=== PATIENT | male | born 1950 | race Caucasian/White ===

== ENCOUNTER → 2019-02-18 | Outpatient (CLI) | payer MEDICARE ==
[2019-02-18 12:26] LABS: Basophils % (A) 1 %; Eosinophils # (A) 0.1 k/uL (0-0.7); Eosinophils % (A) 3 %; HCT 42.9 % (39.0-53.0); HGB 13.9 gm/dL (13.0-17.5); Lymphocytes # (A) 1.2 k/uL (1.0-4.8); Lymphocytes % (A) 27 %; MCHC 32.4 g/dL (31.0-37.0); MCV 92.4 fL (80.0-100.0); Mean Platelet Volume 6.9; Monocytes # (A) 0.3 k/uL (0-1.0); Monocytes % (A) 6 %; Neutrophils # (A) 2.7 k/uL (1.3-7.7); Neutrophils % (A) 61 %; Platelet Count 234 k/uL (150-450); RBC 4.64 m/uL (4.30-5.90); RDW 13.7 % (11.5-15.5); WBC 4.5 k/uL (3.8-10.6)
[2019-02-18 12:43] LABS: Anion Gap 8 mmol/L; Blood Urea Nitrogen 22 mg/dL (9-20); Carbon Dioxide 25 mmol/L (22-30); Chloride 104 mmol/L (98-107); Potassium 4.9 mmol/L (3.5-5.1); Sodium 137 mmol/L (137-145)
== END | disposition home or self-care (01) ==
LOC: LABPAT 11:10
PROVIDERS: ATTEND Thoracic Surgery (Cardiothoracic Vascular Surgery)
DX: Z01.818 Encounter for other preprocedural examination (principal); Z01.812 Encounter for preprocedural laboratory examination; C34.31 Malignant neoplasm of lower lobe, right bronchus or lung
CPT/HCPCS: 36415; 80051; 82565; 84520; 85025; 93005

== ENCOUNTER 2019-02-19 07:30 | Inpatient (IN) | payer MEDICARE ==
[2019-02-16 10:51] VITALS: BMI 25.8
[~2019-02-19 07:30] MED LIST: DEXAMETHASONE SOD PHOSPHATE 10 MG/ML 1 ML VIAL IV ONE; HYDROmorphone 0.5 MG/0.5 ML SYRINGE IVP PRN; LACTATED RINGERS 1,000 ML IV SCH; LIDOCAINE 1% 20 ML VIAL (10MG/ML) FOR IV START INTRADERMA PRN; MIDAZOLAM 2 MG/2 ML VIAL IV PRN; ONDANSETRON 4 MG/2 ML VIAL IVP ONE; SCOPOLAMINE 1.5MG/72HR PATCH TRANSDERM ONE; ceFAZolin IN SWFI 2 GM/20 ML SYRINGE IVP ONE
[2019-02-19] MEDS ORDERED: MIDAZOLAM (PF) 2 MG/2 ML VIAL IV ONE (10:30)
[2019-02-19] MEDS ORDERED: LIDOCAINE 1% INJ 10MG/ML (20 ML MDV) ONE (11:13)
[2019-02-19] MEDS ORDERED: fentaNYL (PF) 50 MCG/ML 2 ML AMP ONE (11:13)
[2019-02-19] MEDS ORDERED: MORPHINE SULFATE 10 MG/ML SYRINGE ONE (11:13)
[2019-02-19] MEDS ORDERED: GLYCOPYRROLATE 0.2 MG/ML 2 ML VIAL ONE (11:13)
[2019-02-19] MEDS ORDERED: ROCURONIUM BROMIDE 10 MG/ML 10 ML VIAL IV ONE (11:13)
[2019-02-19] MEDS ORDERED: MIDAZOLAM 2 MG/2 ML VIAL ONE (11:13)
[2019-02-19] MEDS ORDERED: SUCCINYLCHOLINE CHLORIDE 100 MG/5 ML SYR IV ONE (11:13)
[2019-02-19] MEDS ORDERED: NEOSTIGMINE 1 MG/ML 10 ML VIAL ONE (11:13)
[2019-02-19] MEDS ORDERED: PROPOFOL 10 MG/ML 20 ML VIAL IV ONE (11:13)
[2019-02-19] MEDS ORDERED: BUPIVACAINE (PF) 0.5% 30 ML VIAL SQ ONE ×2 (11:28)
--- NOTE | 2019-02-19 13:17 | XR ---
EXAMINATION TYPE: XR chest 1V portable DATE OF EXAM: 02/19/2019 COMPARISON: NONE HISTORY: Status post VATS TECHNIQUE: Single frontal view of the chest is obtained. FINDINGS: There is been placement of a right chest tube. There are overlying cardiac leads. There is no pleural effusion or pneumothorax seen. The cardiac silhouette size is within normal limits. Th e osseous structures are intact. Some patchy basilar density is present bilaterally. IMPRESSION: No evident complication status post VATS. Probable basilar atelectasis.
--- NOTE | 2019-02-19 13:33 | P.OP ---
Date of Procedure: 02/19/19 Preoperative Diagnosis: Cavitating mass right lower lobe lung Postoperative Diagnosis: Same Procedure(s) Performed: Right thoracoscopic wedge resection mass right lower lobe lung Anesthesia: CLARITA Surgeon: Paulie Martinez Belt Operator #1: Eros Hawthorne Estimated Blood Loss (ml): 5 IV fluids (ml): 400 Pathology: other (Wedge resection mass right lower lobe lung sent for permanent section and culture) Condition: stable Disposition: PACU Indications for Procedure: 68-year-old male with small PET positive cavitary mass right lower lobe of lung Operative Findings: Small mass right lower lobe of lung resected with grossly negative margins Description of Procedure: The patient was brought to the operating room, placed supine on the operating table, anesthetized and intubated with a double-lumen endotracheal tube. Tube was positioned with fiberoptic bronchoscopy. Patient was turned in the left lateral decubitus position and the right chest sterilely prepped and draped. 3 one-inch incisions were made in the right chest and carried into the pleural space. Single lung ventilation was initiated. The lung was gently massaged and the tumor was identified. It was grasped and wedge resection performed with multiple firings of an Endo ALEX stapler. Specimen was placed in an Endo Catch bag and brought out onto the field. It was cut on the back table where a small tumor was noted. A portion of this was sent for culture and the remainder was sent for pathology. The staple lines were inspected and noted to be intact. The lung was reinflated and the staple lines appeared to be holding. 28-Armenian chest tube was placed posterior apically through separate stab incision. Incisions were closed with layers of Vicryl suture. Rib blocks were performed at the level of the incisions with half percent Marcaine. Skin glue and dry sterile dressings were applied. The chest tube was connected to a Pleur-evac. The patient was extubated and transferred to recovery in stable condition.
[2019-02-19] MEDS ORDERED: traMADol 50 MG TAB PO SCH (15:05)
[2019-02-19] MEDS ORDERED: ONDANSETRON 4 MG/2 ML VIAL IVP PRN (15:05)
[2019-02-19] MEDS ORDERED: DEXTROSE 5%-0.45% NACL 1,000 ML IV SCH (15:05)
[2019-02-19] MEDS ORDERED: ACETAMINOPHEN TAB 500 MG TAB PO PRN (15:42)
[2019-02-19 15:56] VITALS: RESP 18
[2019-02-19] MEDS: KETOROLAC 30 MG/ML 1 ML VIAL IVP SCH ×2 (18:13→23:36)
[2019-02-19] MEDS: HEPARIN SODIUM,PORCINE 5,000 UNIT/ML 1 ML VIAL SQ SCH ×2 (18:16→23:36)
[2019-02-19] MEDS: ceFAZolin IN SWFI 2 GM/20 ML SYRINGE IVP SCH ×2 (18:16→23:36)
--- NOTE | 2019-02-19 19:25 | P.CNPUL ---
History of Present Illness Consult date: 02/19/19 Reason for consult: lung mass History of present illness: a pleasant 68-year-old male patient, a chronic smoker who has [id number] smoking history. 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 . The patient is currently not smoking and he quit smoking approximately 40 years ago. He is completely asymptomatic. He has no respiratory difficulties. No reported cough sputum production chest tightness or wheezing. No exposure to TB. No recurrent pneumonias. No recurrent bronchitis. No recurrent aspiration. No constitutional symptoms. No personal history of malignancy. A screening CAT scan was ordered by his primary care physician and this was compared to the earlier CAT scan that was done in 2016. I reviewed the CAT scan films and I also showed the films to the patient. There is an eccentric lesion with thick escamilla around it in the right lower lobe measuring 1.8 cm minutes largest dimension. This is a new finding it was not seen on a previous CAT scan that was obtained and 2016. The patient has also bilateral emphysematous changes more so in the upper lobes. No mediastinal lymphadenopathy. On his pulmonary function tests, he has mild COPD with an FEV1 of 78% of predicted and a post bronchodilation FEV1 of 82%, diffusion of 61%. Total lung capacity of 117%. No cardiac disease. No blood pressure. No diabetes. No other medical problems and comorbidities. Note that the patient underwent a PET scan that confirmed the findings and there was possible uptake in the mass without evidence of any other activity and this seems to be localized uptake in the right lower lobe. As such, there is a high suspicion for malignancy. The patient is suspected to have stage I carcinoma and squamous cell carcinoma was suspected based on underlying cavitation and the possibility of an underlying chronic lung infection cannot be completely ruled out. He was referred to surgical evaluation he was seen by Dr. Paulie Martinez. The patient underwent a thoracoscopic wedge resection of the right lower lobe cavitating lesion. I saw him postop. The patient has no evidence of any complication post his surgery. There is some atelectatic changes in lung bases. The rest of the chest tube without any significant amount of air leak. No significant output from the chest tube. Pain is under good control. He has no specific complaints. Review of Systems Constitutional Constitutional: no fever, no night sweats, no significant weight gain, no significant weight loss, no exercise intolerance Eyes Eyes: no dry eyes, no vision change, no irritation ENMT Ears: no difficulty hearing, no ear pain Nose: no frequent nosebleeds, no nose problems, no sinus problems Mouth/Throat: no sore throat, no bleeding gums, no snoring, no dry mouth, no mouth ulcers, no oral abnormalities, no teeth problems Cardiovascular Cardiovascular: no chest pain, no arm pain on exertion, no shortness of breath when walking, no shortness of breath when lying down, no palpitations, no known heart murmur Respiratory Respiratory: no cough, no wheezing, no shortness of breath, no coughing up blood, no sleep apnea Gastrointestinal Gastrointestinal: no abdominal pain, no nausea, no vomiting, no constipation, n ormal appetite, no diarrhea, not vomiting blood, no dyspepsia, no GERD Genitourinary Genitourinary: no incontinence, no difficulty urinating, no hematuria, no increased frequency Musculoskeletal Musculoskeletal: no muscle aches, no muscle weakness, no arthralgias/joint pain, no back pain, no swelling in the extremities Integumentary Skin: no abnormal mole, no jaundice, no rashes, no laceration Neurologic Neurologic: no loss of consciousness, no weakness, no numbness, no seizures, no dizziness, no migraines, no headaches, no tremor Psychiatric Psych: no depression, no sleep disturbances, feeling safe in a relationship, no alcohol abuse, no anxiety, no hallucinations, no suicidal thoughts Endocrine Endocrine: no fatigue Hematologic/Lymphatic Hematologic/Lymphatic no swollen glands, no bruising, no excessive bleeding Allergic/Immunologic Allergy/Immunologic: no runny nose, no sinus pressure, no itching, no hives, no frequent sneezing Past Medical History Past Medical History: Hyperlipidemia, Hypertension Additional Past Medical History / Comment(s): Right lower lobe indicating pulmonary lesion, seasonal allergies History of Any Multi-Drug Resistant Organisms: None Reported Additional Past Surgical History / Comment(s): left leg vein stripping Past Anesthesia/Blood Transfusion Reactions: No Reported Reaction Smoking Status: Former smoker - Past Family History Mother Family Medical History: Cancer Additional Family Medical History / Comment(s): pancreas Father Family Medical History: Cancer Additional Family Medical History / Comment(s): lung, prostate, skin Sister(s) Family Medical History: Cancer Additional Family Medical History / Comment(s): uterine Medications and Allergies Home Medications Medication Instructions Recorded Confirmed Type Aspirin [Adult Low Dose Aspirin EC] 81 mg PO DAILY 02/16/19 02/19/19 History Lisinopril [Zestril] 5 mg PO QAM 02/16/19 02/19/19 History Montelukast [Singulair] 10 mg PO DAILY 02/16/19 02/19/19 History Simvastatin [Zocor] 10 mg PO QAM 02/16/19 02/19/19 History Allergies Allergy/AdvReac Type Severity Reaction Status Date / Time No Known Allergies Allergy Verified 02/19/19 15:05 Physical Exam Vitals: Vital Signs Temp Pulse Resp BP Pulse Ox 02/19/19 13:30 66 16 112/90 92 L 02/19/19 13:15 68 16 111/72 92 L 02/19/19 12:57 17 123/75 98 02/19/19 12:49 70 16 119/84 96 02/19/19 10:06 97.1 F L 59 L 16 147/75 98 Intake and Output 02/18/19 02/19/19 02/19/19 22:59 06:59 14:59 Intake Total 500 Output Total 5 Balance 495 Intake: IV 500 Output: Estimated Blood Loss 5 General Appearance no diaphoresis, no respiratory distress, speech not interrupted by breaths, no dyspnea, no pallor, not cachectic, well nourished, appears well HEENT no pursed lip breathing, no jugular venous distention, no mucous membrane cyanosis, no perioral cyanosis, mallampati classification: class 1 Chest no barrel chest, no retractions, no sternocleidomastoid muscle contractions, no supraclavicular retractions, no intercostal retractions, no prolonged expiratory wheezing, no decreased air movement, no rhonchi, no hyperinflation, (normal) adventitious sounds: rales / crackles: bilaterally: midlung chery. The patient has a right-sided chest tube in place. No significant air leak. Surgical wound site over the right lung area dry clean and intact. Heart no right ventricular heave, no distant heart sounds, no s3 gallop, (normal) jugular vein: jugular venous distention: by 0cm, (normal) jugular vein GI bowel sounds: hyperactive (borborygmi), bowel sounds: diminished or absent Extremities no cyanosis, no clubbing, no edema Neurologic no decreased mental status, no somnolence, no confusion Assisstive Devices: ambulates with no assitive devices Gait and Mobility: gait WNL, full weight bearing Examination of the skin revealed no evidence of significant rashes, suspicious appearing nevi or other concerning lesions. Results - Diagnostic Findings Chest x-ray: image reviewed Assessment and Plan Plan: 1 right lower lobe indicating pulmonary nodule measuring 1.8 cm in size showing increased activity on the PET scan, likely a stage I carcinoma. The patient is referred to cardiothoracic surgery and the patient underwent a thoracoscopic wedge resection of the right lower lobe lesion for diagnosis. If positive, righ t lower lobe resection is being planned and a separate setting. Currently is postop day #0. The right-sided chest tube in place. 2 hypertension 3 hyperlipidemia 4 mild COPD with an FEV1 of 70% of predicted at baseline. Plan Patient is doing well. Provide an incentive spirometer. Daily chest x-ray. Keep the chest tube in place and monitor the output. Ultram and tramadol for pain control. Heparin subcu for DVT prophylaxis. IV fluids with D5 half-normal saline today to 4 disease an hour. He is doing well. Awaiting final pathology results. We'll continue to follow.
[2019-02-19] MEDS: traMADol 50 MG TAB PO PRN (19:46)
[2019-02-19] MEDS ORDERED: MELATONIN 3 MG TABLET PO SCH (21:00)
[2019-02-20 06:21] LABS: Basophils % (A) 0 %; Eosinophils % (A) 0 %; HCT 37.4 % (39.0-53.0); HGB 12.4 gm/dL (13.0-17.5); Lymphocytes % (A) 15 %; MCH 29.7 pg (25.0-35.0); MCHC 33.1 g/dL (31.0-37.0); MCV 89.9 fL (80.0-100.0); Mean Platelet Volume 6.6; Monocytes # (A) 0.4 k/uL (0-1.0); Monocytes % (A) 7 %; Neutrophils # (A) 4.7 k/uL (1.3-7.7); Neutrophils % (A) 75 %; Platelet Count 227 k/uL (150-450); RBC 4.16 m/uL (4.30-5.90); RDW 13.6 % (11.5-15.5); WBC 6.3 k/uL (3.8-10.6)
[2019-02-20 06:30] LABS: Anion Gap 6 mmol/L; Blood Urea Nitrogen 24 mg/dL (9-20); Calcium 8.7 mg/dL (8.4-10.2); Carbon Dioxide 26 mmol/L (22-30); Chloride 101 mmol/L (98-107); Glucose 107 mg/dL (74-99); Potassium 4.5 mmol/L (3.5-5.1); Sodium 133 mmol/L (137-145)
[2019-02-20] MEDS: traMADol 50 MG TAB PO PRN (06:30)
[2019-02-20] MEDS: KETOROLAC 30 MG/ML 1 ML VIAL IVP SCH ×2 (06:31→13:23)
[2019-02-20] MEDS ORDERED: PANTOPRAZOLE 40 MG TABLET PO SCH (07:30)
--- NOTE | 2019-02-20 08:41 | XR ---
EXAMINATION TYPE: XR chest 1V DATE OF EXAM: 02/20/2019 COMPARISON: 02/19/2019 HISTORY: Post VATS TECHNIQUE: Single frontal view of the chest is obtained. FINDINGS: There is been placement of a right chest tube. There are overlying cardiac leads. There is no pleural effusion or pneumothorax seen. The cardiac silhouette size is within normal limits. The o sseous structures are intact. Some patchy basilar density is present bilaterally. Hyperinflation sugg ests COPD. Arthropathy of the shoulders. IMPRESSION: 1. Stable chest x-ray with no sizable pneumothorax postoperatively. 2. Bilateral areas of consolidation may represent underlying atelectasis with tiny effusions versus i nfiltrate.
[2019-02-20] MEDS ORDERED: LISINOPRIL 5 MG TAB PO SCH (09:00)
[2019-02-20] MEDS ORDERED: ASPIRIN 81 MG PO SCH (09:00)
[2019-02-20] MEDS ORDERED: ATORVASTATIN 10 MG TAB PO SCH (09:00)
[2019-02-20] MEDS ORDERED: MONTELUKAST 10 MG TAB PO SCH (09:00)
[2019-02-20] MEDS: HEPARIN SODIUM,PORCINE 5,000 UNIT/ML 1 ML VIAL SQ SCH (09:02)
--- NOTE | 2019-02-20 09:20 | P.PN ---
Subjective Progress Note Date: 02/20/19 Principal diagnosis: Cavitating mass right lower lobe of the lung. Previous medical history of COPD with [id number] smoking history, hypertension, hypercholesterolemia, and fami ly history of cancer. POD #1 right thoracoscopic wedge resection of the mass to the right lower lobe lung The patient's currently sitting up in bed in no acute distress. States pain is well controlled on current medication regimen. Denies shortness of breath. Right pleural chest tube remains to waterseal, no air leak present. Objective - Vital Signs Vital signs: Vital Signs Temp 98.1 F 02/20/19 04:00 Pulse 64 02/20/19 04:00 Resp 18 02/20/19 04:00 BP 104/68 02/20/19 04:00 Pulse Ox 93 L 02/20/19 04:00 Intake & Output 02/19/19 02/20/19 02/20/19 18:59 06:59 18:59 Intake Total 780 Output Total 5 247 Balance 775 -247 Weight 79.3 kg Intake: IV 500 Oral 280 Output: Chest Tube Drainage 32 Chest Tube Right 32 Urine 215 Estimated Blood Loss 5 Other: Voiding Method Toilet # Voids 1 - Constitutional General appearance: Present: cooperative, no acute distress - Respiratory Details: Lungs sounds clear but diminished bilaterally. Respirations even, nonlabored. Currently on room air with oxygen saturation 93%. Able to achieve 2250 mL on his incentive spirometry. Right pleural chest tube to waterseal, 32 mL serosanguineous drainage overnight, 100 mL since surgery, no air leak present. - Cardiovascular Details: S1, S2 present. Regular rate and rhythm, sinus rhythm on telemetry. Palpable peripheral pulses bilaterally. No edema present. No calf pain or tenderness noted. SCDs present. - Gastrointestinal Gastrointestinal Comment(s): Abdomen soft, nontender, nondistended. Active bowel sounds 4 quadrants. Tolerating diet. - Genitourinary Genitourinary Comment(s): Continues to void clear, yellow urine. - Integumentary Integumentary Comment(s): Skin is warm and dry with evidence of good perfusion. Right pleural chest tube site covered with dry intact dressing. - Neurologic Neurologic: Present: CNII-XII intact - Musculoskeletal Musculoskeletal: Present: gait normal, strength equal bilaterally - Psychiatric Psychiatric: Present: A&O x's 3, appropriate affect, intact judgment & insight - Allied health notes Allied health notes reviewed: nursing - Labs CBC & Chem 7: 02/20/19 05:48 02/20/19 05:48 Labs: Abnormal Lab Results - Last 24 Hours (Table) 02/20/19 02/20/19 Range/Units 05:48 05:48 RBC 4.16 L (4.30-5.90) m/uL Hgb 12.4 L (13.0-17.5) gm/dL Hct 37.4 L (39.0-53.0) % Sodium 133 L (137-145) mmol/L BUN 24 H (9-20) mg/dL Glucose 107 H (74-99) mg/dL Microbiology - Last 24 Hours (Table) 02/19/19 12:16 Gram Stain - Preliminary Lung - Right Lower Lobe Tissue Culture - Preliminary 02/19/19 12:16 Acid Fast Bacilli Smear - Final Lung - Right Lower Lobe Acid Fast Bacilli Culture - Preliminary 02/19/19 12:16 Anaerobic Culture - Preliminary Lung - Right Lower Lobe 02/19/19 12:16 Fungal Culture - Preliminary Lung - Right Lower Lobe - Imaging and Cardiology Chest x-ray: report reviewed, image reviewed Assessment and Plan Assessment: 1. Cavitating mass right lower lobe of the lung, status post right thoracoscopic wedge resection. 2. COPD with [id number] smoking history 3. Hypertension 4. Hypercholesterolemia 5. Family history of cancer Plan: 1. Will discontinue right pleural chest tube. Repeat CXR in 2 hours. If stable, will discharge to home with follow up appointment made for Dr. Martinez in 1 week. 2. Encourage continued incentive spirometry at home. 3. Pain control with Tylenol alternating with Motrin. 4. Increase activity, ambulate as tolerated. 5. Chest tube dressing to remain in place for 48 hours. If dressing becomes saturated, may reinforce. After 48 hours, patient may remove dressing and shower daily. 6. Follow up appointments made for pulmonology, primary care physicians. Time with Patient: Greater than 30
--- NOTE | 2019-02-20 12:14 | XR ---
EXAMINATION TYPE: XR chest 2V DATE OF EXAM: 02/20/2019 COMPARISON: NONE TECHNIQUE: PA and lateral views submitted. HISTORY: Post chest tube removal FINDINGS: There is removal right-sided chest tube with a tiny less than 5% right apical pneumothorax. Subsegmen jeanmarie changes involving the left lung base. Right perihilar subsegmental changes are noted. There is hy perinflation suggestive of COPD. Hypertrophic and degenerative change of the spine. Arthropathy of th e shoulders. Diffuse osteopenia. IMPRESSION: 1. Tiny less than 5% right apical pneumothorax post chest tube removal. 2. Bilateral areas of consolidation for which atelectasis is favored over pneumonia.
[2019-02-20 12:50] VITALS: BP 105/63; PULSE 63; TEMP 97.9
--- NOTE | 2019-02-20 15:52 | P.PN ---
Subjective Progress Note Date: 02/20/19 Principal diagnosis: Right lower lobe pulmonary nodule with increased uptake on the PET scan, status post a scopic wedge resection of the right lower lobe postoperative day 1 a pleasant 68-year-old male patient, a chronic smoker who has [id number] smoking history. 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 . The patient is currently not smoking and he quit smoking approximately 40 years ago. He is completely asymptomatic. He has no respiratory difficulties. No reported cough sputum production chest tightness or wheezing. No exposure to TB. No recurrent pneumonias. No recurrent bronchitis. No recurrent aspiration. No constitutional symptoms. No personal history of malignancy. A screening CAT scan was ordered by his primary care physician and this was compared to the earlier CAT scan that was done in 2016. I reviewed the CAT scan films and I also showed the films to the patient. There is an eccentric lesion with thick escamilla around it in the right lower lobe measuring 1.8 cm minutes largest dimension. This is a new finding it was not seen on a previous CAT scan that was obtained and 2016. The patient has also bilateral emphysematous changes more so in the upper lobes. No mediastinal lymphadenopathy. On his pulmonary function tests, he has mild COPD with an FEV1 of 78% of predicted and a post bronchodilation FEV1 of 82%, diffusion of 61%. Total lung capacity of 117%. No cardiac disease. No blood pressure. No diabetes. No other medical problems and comorbidities. Note that the patient underwent a PET scan that confirmed the findings and there was possible uptake in the mass without evidence of any other activity and this seems to be localized uptake in the right lower lobe. As such, there is a high suspicion for malignancy. The patient is suspected to have stage I carcinoma and squamous cell carcinoma was suspected based on underlying cavitation and the possibility of an underlying chronic lung infection cannot be completely ruled out. He was referred to surgical evaluation he was seen by Dr. Paulie Martinez. The patient underwent a thoracoscopic wedge resection of the right lower lobe cavitating lesion. I saw him postop. The patient has no evidence of any complication post his surgery. There is some atelectatic changes in lung bases. The rest of the chest tube without any significant amount of air leak. No significant output from the chest tube. Pain is under good control. He has no specific complaints. On 02/20/2019 patient seen in follow-up on selective care unit. He is awake and alert, in no acute distress, he is doing very well, he is feeling better today, more awake, doesn't remember much from yesterday, but no acute distress, he is on room air, he is prone 3000 on his incentive spirometer, today's chest x-ray has been reviewed, showing no sizable pneumothorax, bilateral areas of consoli dation that could represent underlying atelectasis with tiny pleural effusions. Biopsy results are pending, this is postoperative day one, right thoracoscopic wedge resection of the mass to the right lower lobe lung, pain is well controlled on current medications, right pleural chest tube has been discontinued, and there was no air leak present this morning. Follow-up chest x-ray showed tiny less than 5% right apical pneumothorax. he remains stable, and he is anticipated to be discharged home today. Objective - Vital Signs Vital signs: Vital Signs Temp 97.9 F 02/20/19 12:00 Pulse 63 02/20/19 12:00 Resp 18 02/20/19 12:00 BP 105/63 02/20/19 12:00 Pulse Ox 94 L 02/20/19 12:00 Intake & Output 02/19/19 02/20/19 02/20/19 18:59 06:59 18:59 Intake Total 780 450 Output Total 5 247 Balance 775 -247 450 Weight 79.3 kg Intake: IV 500 Oral 280 450 Output: Chest Tube Drainage 32 Chest Tube Right 32 Urine 215 Estimated Blood Loss 5 Other: Voiding Method Toilet # Voids 1 - Exam GENERAL EXAM: Alert, pleasant, 68-year-old white male, comfortable in no apparent distress. HEAD: Normocephalic/atraumatic. EYES: Normal reaction of pupils, equal size. Conjunctiva pink, sclera white. NOSE: Clear with pink turbinates. THROAT: No erythema or exudates. NECK: No masses, no JVD, no thyroid enlargement, no adenopathy. CHEST: No chest wall deformity. Symmetrical expansion. Right-sided chest tube has been discontinued LUNGS: Equal air entry with diminished breath sounds bilaterally. Respirations are even and nonlabored CVS: Regular rate and rhythm, normal S1 and S2, no gallops, no murmurs, no rubs ABDOMEN: Soft, nontender. No hepatosplenomegaly, normal bowel sounds, no guarding or rigidity. EXTREMITIES: No clubbing, no edema, no cyanosis, 2+ pulses and upper and lower extremities. MUSCULOSKELETAL: Muscle strength and tone normal. SPINE: No scoliosis or deformity SKIN: No rashes CENTRAL NERVOUS SYSTEM: Alert and oriented -3. No focal deficits, tone is normal in all 4 extremities. PSYCHIATRIC: Alert and oriented -3. Appropriate affect. Intact judgment and insight. - Labs CBC & Chem 7: 02/20/19 05:48 02/20/19 05:48 Labs: Abnormal Lab Results - Last 24 Hours (Table) 02/20/19 02/20/19 Range/Units 05:48 05:48 RBC 4.16 L (4.30-5.90) m/uL Hgb 12.4 L (13.0-17.5) gm/dL Hct 37.4 L (39.0-53.0) % Sodium 133 L (137-145) mmol/L BUN 24 H (9-20) mg/dL Glucose 107 H (74-99) mg/dL Microbiology - Last 24 Hours (Table) 02/19/19 12:16 Gram Stain - Preliminary Lung - Right Lower Lobe Tissue Culture - Preliminary 02/19/19 12:16 Acid Fast Bacilli Smear - Final Lung - Right Lower Lobe Acid Fast Bacilli Culture - Preliminary 02/19/19 12:16 Anaerobic Culture - Preliminary Lung - Right Lower Lobe 02/19/19 12:16 Fungal Culture - Preliminary Lung - Right Lower Lobe Assessment and Plan Plan: 1 right lower lobe indicating pulmonary nodule measuring 1.8 cm in size showing increased activity on the PET scan, likely a stage I carcinoma. The patient is referred to cardiothoracic surgery and the patient underwent a thoracoscopic wedge resection of the right lower lobe lesion for diagnosis. If positive, right lower lobe resection is being planned and a separate setting. Currently is postop day #1. The right-sided chest tube in place. 2 hypertension 3 hyperlipidemia 4 mild COPD with an FEV1 of 70% of predicted at baseline. Plan: Patient is doing well, right-sided chest tube has been removed, follow-up chest x-ray showed a tiny 5% apical pneumothorax on the right, clinical patient remains stable, dissipate discharge home today, by his results are still pending. We'll follow up in the office with results of the biopsy. I performed a history & physical examination of the patient and discussed their management with my nurse practitioner, Lindsay Camacho. I reviewed the nurse practitioner's note and agree with the documented findings and plan of care. Lung sounds are positive for diffuse wheezes throughout the lung chery. The findings and the impression was discussed with the patient. I attest to the documentation by the nurse practitioner. Time with Patient: Less than 30
--- NOTE | 2019-02-22 11:13 | P.DS ---
Providers Date of admission: 02/19/19 08:34 Expected date of discharge: 02/20/19 Attending physician: Paulie Martinez Consults: 02/19/19 15:05 Consult Physician Routine Consulting Provider: Mar Lee Consult Reason/Comments: post vats Do you want consulting provider notified?: Yes Primary care physician: [facility] Course: FINAL DIAGNOSIS: 1. Cavitating mass right lower lobe of the lung 2. History of COPD with [id number] smoking history 3. Hypertension 4. Hypercholesterolemia 5. Family history of cancer PRINCIPAL PROCEDURE: 1. Right thoracoscopic wedge resection of the mass to the right lower lobe of the lung HISTORY OF PRESENT ILLNESS: This is a 68-year-old gentleman who follows on an outpatient basis with Dr Padilla and Dr. Lee. This gentleman had a [id number]-[id number] smoking history, he had a computed tomography scan demonstrating cavitating mass in the right lower lobe along with significant bullous disease consistent with COPD. This was confirmed on PET scan with positive uptake in the mass and no evidence of other abnormal uptake. Pulmonary function test demonstrated moderate obstructive pulmonary disease with diffusion defect. The patient was referred to Dr. Martinez from cardiothoracic surgery. He was recommended to undergo thoracoscopic wedge resection for diagnosis. The usual perioperative course was discussed in detail with the patient and his family, all risks and benefits were explained, all questions were answered, and consent was obtained to proceed with surgery. The patient was scheduled for surgery at the earliest possible available time. HOSPITAL COURSE: The patient was brought to the hospital on 02/19/2019, taken to the preoperative area, prepared in the usual fashion, and subsequently taken to the operating room where Dr. Martinez performed a right thoracoscopic wedge resection of the mass in the right lower lobe of the lung. Upon completion of surgery the patient was extubated and eventually admitted to [address] [place] [address] cardiac stepdown unit where he was recovered and monitored hemodynamically. The day after surgery his chest tube had no air leak, there was no pneumothorax on his chest x-ray, and his right pleural chest tube was discontinued without incident. Repeat chest x-ray was stable. His oxygen was titrated down, he was tolerating oral diet, his pain was controlled, and he was ready to be discharged to home on postoperative day #1. He received written and verbal instruction regarding his medications, activity restrictions, signs and symptoms requiring physician no tification, and follow-up appointments. COMPLICATIONS: The patient experienced no postoperative complications. Patient Condition at Discharge: Stable Plan - Discharge Summary Discharge Rx Participant: No New Discharge Prescriptions: New Acetaminophen Tab [Tylenol] 1,000 mg PO Q6HR PRN tab PRN Reason: Fever And/ Or Pain Continue Montelukast [Singulair] 10 mg PO DAILY Lisinopril [Zestril] 5 mg PO QAM Simvastatin [Zocor] 10 mg PO QAM Aspirin [Adult Low Dose Aspirin EC] 81 mg PO DAILY Discharge Medication List Aspirin [Adult Low Dose Aspirin EC] 81 mg PO DAILY 02/16/19 [History] Lisinopril [Zestril] 5 mg PO QAM 02/16/19 [History] Montelukast [Singulair] 10 mg PO DAILY 02/16/19 [History] Simvastatin [Zocor] 10 mg PO QAM 02/16/19 [History] Acetaminophen Tab [Tylenol] 1,000 mg PO Q6HR PRN tab 02/20/19 [Rx] Follow up Appointment(s)/Referral(s): Paulie Martinez MD [STAFF PHYSICIAN] - 02/26/19 1:15 pm () Chapito Padilla MD [Primary Care Provider] - 1 Week Mar Lee MD [STAFF PHYSICIAN] - 03/06/19 2:00 pm (Saturday) Patient Instructions/Handouts: Chest Tubes (DC) Activity/Diet/Wound Care/Special Instructions: DISCHARGE INSTRUCTIONS: 1. No driving for 2 weeks, or until physician gives their ok. 2. No lifting, pushing, or pulling more than 10 pounds for 2 weeks. The physician will advise of any restriction changes. 3. Continue pain control per as needed orders. Alternate acetaminophen (Tylenol) and ibuprofen (Motrin/Advil) for pain. 4. Continue with incentive spirometry and splinting until otherwise directed by the physician. 5. Leave chest tube dressing for 48 hours. After that, remove all dressings and shower daily. 6. Routine incision care. No powders, lotions, ointments on incisions. 7. Please call surgeon/[employer] ANALYST for temp greater than 101 F or purulent drainage from incisions. Discharge Disposition: HOME SELF-CARE
--- NOTE | 2019-02-26 14:29 | CDI ---
Documentation Clarification Form Date: 02/26/2019 2:27:00 PM From: Jammie Aaron Phone: If you have a question regarding this query, please contact Dennise Hairston at [phone] between 8am and 5pm. Admit Date: 02/19/2019 8:34:00 AM Patient Name: Paulie Ring Visit Number: [id number] Discharge Date: 02/20/2019 2:08:00 PM ATTENTION: The Clinical Documentation Specialists (CDI) and [facility] Coding Staff appreciate your assistance in clarifying documentation. Please respond to the clarification below the line at the bottom and electronically sign. The CDI & [facility] Coding staff will review the response and follow-up if needed. Please note: Queries are made part of the Legal Health Record. If you have any questions, please contact the author of this message via ITS. Dr. 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 Documentation states: Discharge summary states cavitating mass right lower lobe of the lung. Dr. Lee's consult note states right lower lobe nodule likely a stage 1 carcinoma. Patient history/risk factors: Cigarette smoking Clinical Indicators: Lesion of right lower lung lobe, Per H&P the lesion is consistent with squamous cell carcinoma by both CT and PET criteria. Treatment: Wedge resection mass right lower lobe lung In your professional opinion, do you agree with the pathology report specifying the lung mass as squamous cell carcinoma? Yes No Other (please specify) Unable to determine Yes MTDD
== END 2019-02-20 14:08 | disposition home or self-care (01) | DRG 167 ==
LOC: EDSTATUS 07:30 → 2ORMAIN 08:34 → 3SCARD 14:22
PROVIDERS: ADMIT Thoracic Surgery (Cardiothoracic Vascular Surgery); ATTEND Thoracic Surgery (Cardiothoracic Vascular Surgery)
PROC: 0BBF4ZX Excision of Right Lower Lung Lobe, Percutaneous Endoscopic Approach, Diagnostic (ICD-10-PCS; principal; 2019-02-19 10:00)
DX: C34.31 Malignant neoplasm of lower lobe, right bronchus or lung (principal); J98.11 Atelectasis; J44.9 Chronic obstructive pulmonary disease, unspecified; E78.00 Pure hypercholesterolemia, unspecified; E78.5 Hyperlipidemia, unspecified; I10 Essential (primary) hypertension; Z79.82 Long term (current) use of aspirin; Z79.899 Other long term (current) drug therapy; Z87.891 Personal history of nicotine dependence; Z85.46 Personal history of malignant neoplasm of prostate; Z85.828 Personal history of other malignant neoplasm of skin; Z85.118 Personal history of other malignant neoplasm of bronchus and lung; Z85.07 Personal history of malignant neoplasm of pancreas; Z85.89 Personal history of malignant neoplasm of other organs and systems
CPT/HCPCS: 36415; 71045; 71046; 80048; 80051; 82565; 84520; 85025; 87070; 87075; 87102; 87116; 87205; 87206; 88307; 88341; 88342; 93005

== ENCOUNTER → 2019-03-31 | Outpatient (CLI) | payer MEDICARE ==
[2019-03-31 15:25] LABS: Basophils % (A) 1 %; Eosinophils # (A) 0.1 k/uL (0-0.7); Eosinophils % (A) 2 %; HCT 40.2 % (39.0-53.0); HGB 13.1 gm/dL (13.0-17.5); Lymphocytes # (A) 1.6 k/uL (1.0-4.8); Lymphocytes % (A) 30 %; MCHC 32.6 g/dL (31.0-37.0); Mean Platelet Volume 6.5; Monocytes # (A) 0.3 k/uL (0-1.0); Monocytes % (A) 6 %; Neutrophils # (A) 3.1 k/uL (1.3-7.7); Neutrophils % (A) 58 %; Platelet Count 224 k/uL (150-450); RBC 4.37 m/uL (4.30-5.90); RDW 13.9 % (11.5-15.5); WBC 5.3 k/uL (3.8-10.6)
[2019-03-31 15:31] LABS: INR 0.9 (<1.2); Partial Thromboplastin Time 24.9 sec (22.0-30.0); Prothrombin Time 10.2 sec (9.0-12.0)
[2019-03-31 15:36] LABS: African American GFR (CKD) >90 (>60 ml/min/1.73 sqM); Anion Gap 7 mmol/L; Blood Urea Nitrogen 16 mg/dL (9-20); Carbon Dioxide 27 mmol/L (22-30); Chloride 103 mmol/L (98-107); Glucose 104 mg/dL (74-99); Potassium 4.4 mmol/L (3.5-5.1); Sodium 137 mmol/L (137-145)
== END | disposition home or self-care (01) ==
LOC: LABPAT 14:20
PROVIDERS: ATTEND Thoracic Surgery (Cardiothoracic Vascular Surgery)
DX: Z01.812 Encounter for preprocedural laboratory examination (principal)
CPT/HCPCS: 36415; 80051; 82565; 82947; 84520; 85025; 85610; 85730

== ENCOUNTER 2019-04-09 06:00 | Inpatient (IN) | payer MEDICARE, BC ==
[~2019-04-09 06:00] MED LIST changes: -DEXAMETHASONE SOD PHOSPHATE 10 MG/ML 1 ML VIAL IV ONE; -LACTATED RINGERS 1,000 ML IV SCH; -MIDAZOLAM 2 MG/2 ML VIAL IV PRN; -ONDANSETRON 4 MG/2 ML VIAL IVP ONE; +ONDANSETRON 4 MG/2 ML VIAL IVP PRN; -SCOPOLAMINE 1.5MG/72HR PATCH TRANSDERM ONE
[2019-04-09] MEDS: LACTATED RINGERS 1,000 ML IV SCH ×2 (06:55→06:56)
[2019-04-09] MEDS ORDERED: NEOSTIGMINE 1 MG/ML 10 ML VIAL ONE (07:05)
[2019-04-09] MEDS ORDERED: SUCCINYLCHOLINE CHLORIDE 100 MG/5 ML SYR IV ONE (07:05)
[2019-04-09] MEDS ORDERED: fentaNYL (PF) 50 MCG/ML 2 ML AMP ONE (07:05)
[2019-04-09] MEDS ORDERED: PROPOFOL 10 MG/ML 20 ML VIAL IV ONE (07:05)
[2019-04-09] MEDS ORDERED: ePHEDrine SULFATE/0.9% NACL/PF 50 MG/5 ML SYRINGE IV ONE (07:05)
[2019-04-09] MEDS ORDERED: LIDOCAINE 1% INJ 10MG/ML (20 ML MDV) ONE (07:05)
[2019-04-09] MEDS ORDERED: ROCURONIUM BROMIDE 10 MG/ML 10 ML VIAL IV ONE (07:05)
[2019-04-09] MEDS ORDERED: KETAMINE 10 MG/ML 20 ML VIAL ONE (07:05)
[2019-04-09] MEDS ORDERED: MIDAZOLAM 2 MG/2 ML VIAL ONE (07:05)
[2019-04-09] MEDS ORDERED: GLYCOPYRROLATE 0.2 MG/ML 2 ML VIAL ONE (07:05)
[2019-04-09] MEDS ORDERED: BUPIVACAINE (PF) 0.5% 30 ML VIAL SQ ONE ×2 (08:44)
--- NOTE | 2019-04-09 10:34 | P.OP ---
Date of Procedure: 04/09/19 Preoperative Diagnosis: Lung cancer Postoperative Diagnosis: Same Procedure(s) Performed: Robotic-assisted thoracoscopic right lower lobectomy with mediastinal lymph node dissection Anesthesia: CLARITA Surgeon: Paulie Martinez [employer] Employee #1: Eros Hawthorne Estimated Blood Loss (ml): 40 IV fluids (ml): 400 Urine output (ml): 200 Pathology: other (Right lower lobe, lymph node stations R8 R9 R10 and level VII) Condition: stable Disposition: PACU Indications for Procedure: 68-year-old male previous smoker with a cavitating mass in the right lower lobe previously wedged out shown to be poorly differentiated squamous cell carcinoma. The margin was very close. PET scan was negative for metastasis. Lobectomy was recommended for better oncologic control. Operative Findings: There were minimal adhesions. Fissures were near complete. There was anthracotic lymphadenopathy in the hilum. Description of Procedure: The patient was brought to the operating room and placed supine on the operating table, anesthetized and intubated with a double-lumen endotracheal tube. Tube was positioned with fiberoptic bronchoscopy and secured. Patient was turned in the left lateral decubitus position and the right chest sterilely prepped and draped. Patient was appropriately positioned for robotic lobectomy. Initial incision was made in the posterior axillary line in the ninth interspace carried down through skin and subcutaneous tissue and into the pleural space. 8 mm port was placed in the thoracoscope was introduced. Placement in the pleural space was confirmed. CO2 insufflation was begun. This port was subsequently changed to a 10 mm port. Second incision was made in the eighth interspace in the anterior axillary line and the 8 mm port was placed here. Anterior to this and the eighth interspace near the costal margin a second 10 mm port was placed and posteriorly just anterior to the spine in the sixth interspace a second 8 mm port was placed. A working port was placed in the midaxillary line in the 11th interspace at the level of the diaphragm. The robot was docked. Grasper was placed through the most posterior port cavity a forceps was placed through the next most posterior port. A bipolar dissector was placed through the most anterior port. The anterior axillary line port had the camera. Dissection was begun at the inferior pulmonary ligament. This was taken down. 2 lymph nodes were identified in this region and were resected and sent as R9 lymph nodes. Dissection was carried up to the inferior pulmonary vein. Dissection was carried around the inferior pulmonary vein and it was ligated and divided with single firing of a robotic vascular stapler. The paraesophageal lymph nodes were dissected and sent as R8 lymph nodes. Dissection was carried up into the subcarinal region and these lymph nodes were resected and sent as level VII lymph nodes. Dissection was now carried out along the bronchus intermedius and the takeoff of the lower lobe bronchus and middle lobe bronchus were identified. There were considerable anthracotic lymph nodes in this region and these were partially resected and sent as R 10 lymph nodes. Dissection was carried out around the lower lobe bronchus and it was ligated and divided with a robotic thick stapler load being careful to preserve the airway to the middle lobe. Now began dissection around the pulmonary artery branches leading to the lower lobe. The spear segmental branch was taken separately with a single firing of a robotic vascular stapler. We then took the basilar segmental branches with a single firing of a robotic vascular stapler. Some further lymph nodes were resected from the hilum and the fissure was completed with multiple firings of a robotic medium stapler. Lobectomy specimen was then placed in an Endo Catch bag retracted inferiorly. The right paratracheal space was explored and no significant lymphadenopathy was noted in this area. The robot was now undocked and the working space port was slightly enlarged. Lobectomy specimen was brought out in an Endo Catch bag through the working port incision and sent for permanent section. Chest was irrigated with warm water and the lung inflated. No air leaks were noted. Water was sucked out and a 28-Macedonian chest tube was placed posterior apically and secured. Lung was reinflated under thoracoscopic vision. Rib blocks were performed at the level of the incisions with half percent Marcaine. Levels 6 through 11 were anesthetized. Incisions were closed with layers of Vicryl suture. Skin glue and dry sterile dressings were applied. Patient was turned supine and extubated and transferred to recovery in stable condition.
[2019-04-09] MEDS ORDERED: ONDANSETRON 4 MG/2 ML VIAL IVP PRN (10:39)
[2019-04-09] MEDS ORDERED: BISACODYL 10 MG SUPP RECTAL PRN (10:39)
[2019-04-09] MEDS ORDERED: DEXTROSE 5%-0.45% NACL 1,000 ML IV SCH (10:39)
[2019-04-09] MEDS ORDERED: IPRATROPIUM-ALBUTEROL 3 ML NEB IH PRN (10:39)
--- NOTE | 2019-04-09 11:25 | XR ---
EXAMINATION TYPE: XR chest 1V DATE OF EXAM: 04/09/2019 COMPARISON: 02/20/2019 INDICATION: Postoperative right lower lobectomy TECHNIQUE: Single frontal view of the chest is obtained. FINDINGS: The heart size is normal. The pulmonary vasculature is normal. Some minimal subsegmental atelectasis may be at the left base. Minimal linear opacities at the right base. A minimal pneumothorax is present estimated at less than 10%. Right-sided chest tube is in posi tion. IMPRESSION: 1. Minimal right apical pneumothorax. Right-sided chest tube is in position. 2. Mild bibasilar atelectasis
[2019-04-09] MEDS: KETOROLAC 30 MG/ML 1 ML VIAL IVP SCH ×3 (11:31→23:25)
[2019-04-09 13:18] LABS: Allen Test Performed? Yes
[2019-04-09 13:19] LABS: ABG HCO3 24 mmol/L (21-25); ABG PCO2 41 mmHg (35-45); ABG PH 7.37 (7.35-7.45); ABG PO2 70 mmHg (83-108)
[2019-04-09 13:20] LABS: ABG Oxygen Saturation 94.5 % (94-97)
[2019-04-09] MEDS: IPRATROPIUM-ALBUTEROL 3 ML NEB IH SCH ×3 (14:00→20:17)
[2019-04-09 14:28] LABS: Basophils % (A) 0 %; Eosinophils % (A) 0 %; HCT 39.7 % (39.0-53.0); HGB 13.2 gm/dL (13.0-17.5); Lymphocytes # (A) 0.6 k/uL (1.0-4.8); Lymphocytes % (A) 5 %; MCH 30.5 pg (25.0-35.0); MCHC 33.1 g/dL (31.0-37.0); MCV 91.9 fL (80.0-100.0); Mean Platelet Volume 7.1; Monocytes # (A) 0.5 k/uL (0-1.0); Monocytes % (A) 4 %; Neutrophils % (A) 89 %; Platelet Count 189 k/uL (150-450); RBC 4.32 m/uL (4.30-5.90); RDW 14.7 % (11.5-15.5); WBC 11.2 k/uL (3.8-10.6)
[2019-04-09 14:29] LABS: African American GFR (CKD) >90 (>60 ml/min/1.73 sqM); Anion Gap 9 mmol/L; Blood Urea Nitrogen 17 mg/dL (9-20); Calcium 8.5 mg/dL (8.4-10.2); Carbon Dioxide 25 mmol/L (22-30); Chloride 104 mmol/L (98-107); Glucose 122 mg/dL (74-99); Potassium 4.1 mmol/L (3.5-5.1); Sodium 138 mmol/L (137-145)
--- NOTE | 2019-04-09 15:51 | P.CNPUL ---
History of Present Illness Consult date: 04/09/19 Requesting physician: Paulie Martinez Reason for consult: other (Status post right lower lobectomy, and mediastinal lymph node dissection) Chief complaint: History of squamous cell carcinoma involving the right lower lobe. 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 Lee for abnormal CT of the chest, showing a cavitary right lower lobe mass. The mass measured 1.8 cm, patient had fairly good PFT with FEV1 of 82%. PET scan showed uptake in the mass without evidence of any other activity. The mass was highly suspicious for bronchogenic carcinoma. Dr. Lee felt that the patient had a stage I carcinoma and he was referred to Dr. Martinez. Patient had recent wedge resection and sure enough the biopsy was positive for squamous cell lung cancer. On follow-up, patient was made aware that this was cancerous, and now he needed right lower lobectomy. Today the patient underwent right lower lobectomy and lymph node dissection. Postoperatively patient was admitted to regular medical floor, and we were asked to see him on consultation. Presently the patient is asymptomatic. He has a right-sided chest tube. Denies any cough no wheezing no fever no chills no hemoptysis no chest pain. His postoperative pain is fairly well controlled. His postoperative chest x-ray showed no evidence of pneumothorax or complications. Review of Systems Constitutional Constitutional: no fever, no night sweats, no significant weight gain, no significant weight loss, no exercise intolerance Eyes Eyes: no dry eyes, no vision change, no irritation Ears: no difficulty hearing, no ear pain Nose: no frequent nosebleeds, no nose problems, no sinus problems Mouth/Throat: no sore throat, no bleeding gums, no snoring, no dry mouth, no mouth ulcers, no oral abnormalities, no teeth problems Cardiovascular: no chest pain, no arm pain on exertion, no shortness of breath when walking, no shortness of breath when lying down, no palpitations, no known heart murmur Respiratory: no cough, no wheezing, no shortness of breath, no coughing up blood, no sleep apnea Gastrointestinal: no abdominal pain, no nausea, no vomiting, no constipation, normal appetite, no diarrhea, not vomiting blood, no dyspepsia, no GERD Genitourinary: no incontinence, no difficulty urinating, no hematuria, no increased freque Musculoskeletal: no muscle aches, no muscle weakness, no arthralgias/joint pain, no back pain, no swelling in the extremities Skin: no abnormal mole, no jaundice, no rashes, no laceration Neurologic: no loss of consciousness, no weakness, no numbness, no seizures, no dizziness, no migraines, no headaches, no tremor Past Medical History Past Medical History: COPD, Hyperlipidemia, Hypertension Additional Past Medical History / Comment(s): Right lower lobe pulmonary lesion, seasonal allergies History of Any Multi-Drug Resistant Organisms: None Reported Additional Past Surgical History / Comment(s): left leg vein stripping,rt tho racoscopic resection mass rt lower lobe. Past Anesthesia/Blood Transfusion Reactions: No Reported Reaction Additional Past Anesthesia/Blood Transfusion Reaction / Comment(s): no hx blood transfusion Smoking Status: Former smoker - Past Family History Mother Family Medical History: Cancer Additional Family Medical History / Comment(s): pancreas Father Family Medical History: Cancer Additional Family Medical History / Comment(s): lung, prostate, skin Sister(s) Family Medical History: Cancer Additional Family Medical History / Comment(s): uterine Medications and Allergies Home Medications Medication Instructions Recorded Confirmed Type Aspirin [Adult Low Dose Aspirin EC] 81 mg PO DAILY 02/16/19 04/09/19 History Lisinopril [Zestril] 5 mg PO QAM 02/16/19 04/09/19 History Montelukast [Singulair] 10 mg PO QAM 02/16/19 04/09/19 History Simvastatin [Zocor] 10 mg PO QAM 02/16/19 04/09/19 History Acetaminophen Tab [Tylenol] 1,000 mg PO Q6HR PRN tab 02/20/19 04/09/19 Rx Allergies Allergy/AdvReac Type Severity Reaction Status Date / Time No Known Allergies Allergy Verified 04/09/19 13:38 Physical Exam Vitals: Vital Signs Temp Pulse Resp BP BP Pulse Ox 04/09/19 12:30 97.7 F 70 14 138/75 97 04/09/19 12:00 60 16 118/69 91 L 04/09/19 11:46 65 16 115/65 93 L 04/09/19 11:31 70 16 126/69 98 04/09/19 11:18 69 16 120/56 95 04/09/19 11:02 81 16 123/85 96 04/09/19 10:36 97.1 F L 100 12 154/55 148/60 99 04/09/19 06:37 145/85 04/09/19 06:24 97.3 F L 58 L 18 131/74 99 Intake and Output 04/09/19 04/09/19 04/09/19 06:59 14:59 22:59 Intake Total 500 470 Output Total 275 Balance 500 195 Intake: IV 500 470 Output: Urine 200 Estimated Blood Loss 75 Physical Exam: Revealed a very pleasant 68-year-old white male in no distress. Head: Atraumatic, normocephalic. HEENT:[Neck is supple.] [No neck masses.] [No thyromegaly.] [No JVD.] PERRLA, EOMI, Mallampati class I. Chest: [Clear throughout, no crackles, no rhonchi, no wheezes.] Right-sided chest tube is noted. Connected to a Pleur-evac. Serosanguineous fluid noted in the pleural VAC. Cardiac Exam: [Normal S1 and S2, no S3 gallop, no murmur.] Abdomen: [Soft, nontender, no megaly, no rebound, no guarding, normal bowel sounds.] Extremities: [No clubbing, no edema, no cyanosis.] Neurological Exam: [No focal neurologic deficit.] Alert oriented 3. Psychiatric: Normal mood, affect and normal mental status examination. Skin: No rashes. Lymphatics: No lymphadenopathy. Results - Laboratory Findings CBC and BMP: 04/09/19 13:51 04/09/19 13:51 ABG ABG pH 7.37 (7.35-7.45) 04/09/19 13:03 ABG pCO2 41 mmHg (35-45) 04/09/19 13:03 ABG pO2 70 mmHg (83-108) L 04/09/19 13:03 ABG O2 Saturation 94.5 % (94-97) 04/09/19 13:03 Abnormal lab findings: Abnormal Labs 04/09/19 04/09/19 04/09/19 13:03 13:51 13:51 WBC 11.2 H Neutrophils # 10.0 H Lymphocytes # 0.6 L ABG pO2 70 L Glucose 122 H - Diagnostic Findings Chest x-ray: image reviewed (As noted in HPI.) Assessment and Plan Assessment: Impression: 1 right lower lobe squamous cell carcinoma, status post right lower lobectomy and lymph node dissection postoperative day #0. 2 recent history of wedge resection of right lower lobe mass. Pathology came back positive for squamous cell lung cancer. 3 mild COPD, asymptomatic. 4 history of hypertension 5 history of hyperlipidemia. Recommendation: Continue incentive spirometry, daily chest x-rays, monitor chest tube daily and monitor output on a daily basis, pain control, DVT prophylaxis, GI prophylaxis, we'll continue to follow. Time with Patient: Greater than 30
[2019-04-09] MEDS: ACETAMINOPHEN IV (For NPO) 1,000 MG in EMPTY BAG 1 BAG IVPB SCH ×2 (17:28→23:20)
[2019-04-09] MEDS: ceFAZolin IN SWFI 2 GM/20 ML SYRINGE IVP SCH ×2 (17:37→23:25)
[2019-04-09] MEDS: HEPARIN SODIUM,PORCINE 5,000 UNIT/ML 1 ML VIAL SQ SCH ×2 (17:39→23:25)
[2019-04-09 18:54] VITALS: BMI 25.2
[2019-04-09] MEDS ORDERED: ACETAMINOPHEN IV (For NPO) 1,000 MG in EMPTY BAG 1 BAG IVPB SCH (23:00)
[2019-04-10] MEDS: KETOROLAC 30 MG/ML 1 ML VIAL IVP SCH ×4 (06:03→22:54)
[2019-04-10 06:25] LABS: HGB 11.1 gm/dL (13.0-17.5); MCH 30.9 pg (25.0-35.0); MCHC 33.8 g/dL (31.0-37.0); MCV 91.6 fL (80.0-100.0); Mean Platelet Volume 6.6; Platelet Count 165 k/uL (150-450); RBC 3.61 m/uL (4.30-5.90); RDW 13.6 % (11.5-15.5); WBC 5.4 k/uL (3.8-10.6)
[2019-04-10 06:41] LABS: African American GFR (CKD) >90 (>60 ml/min/1.73 sqM); Anion Gap 7 mmol/L; Blood Urea Nitrogen 13 mg/dL (9-20); Calcium 8.2 mg/dL (8.4-10.2); Carbon Dioxide 26 mmol/L (22-30); Chloride 98 mmol/L (98-107); Glucose 117 mg/dL (74-99); Potassium 3.7 mmol/L (3.5-5.1); Sodium 131 mmol/L (137-145)
--- NOTE | 2019-04-10 07:38 | XR ---
EXAMINATION TYPE: XR chest 1V DATE OF EXAM: 04/10/2019 COMPARISON: 04/09/2019 HISTORY: . TECHNIQUE: Single frontal view of the chest is obtained. FINDINGS: Bilateral consolidation and small effusion. Right-sided chest tube and there is a stable s mall right apical pneumothorax. Arthropathy shoulders. Heart size stable. No overt failure. IMPRESSION: 1. Stable right-sided apical small pneumothorax. 2. Stable bilateral lower lobe consolidation
[2019-04-10] MEDS: IPRATROPIUM-ALBUTEROL 3 ML NEB IH SCH ×4 (08:14→19:42)
[2019-04-10] MEDS: HEPARIN SODIUM,PORCINE 5,000 UNIT/ML 1 ML VIAL SQ SCH ×3 (08:53→22:54)
[2019-04-10] MEDS: LISINOPRIL 5 MG TAB PO SCH (08:53)
[2019-04-10] MEDS: MONTELUKAST 10 MG TAB PO SCH (08:53)
[2019-04-10] MEDS: ATORVASTATIN 10 MG TAB PO SCH (08:54)
[2019-04-10] MEDS: PANTOPRAZOLE 40 MG TABLET PO SCH (08:54)
[2019-04-10] MEDS: ASPIRIN 81 MG PO SCH (08:54)
--- NOTE | 2019-04-10 10:27 | P.PN ---
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 Lee for abnormal CT of the chest, showing a cavitary right lower lobe mass. The mass measured 1.8 cm, patient had fairly good PFT with FEV1 of 82%. PET scan showed uptake in the mass without evidence of any other activity. The mass was highly suspicious for bronchogenic carcinoma. Dr. Lee felt that the patient had a stage I carcinoma and he was referred to Dr. Martinez. Patient had recent wedge resection and sure enough the biopsy was positive for squamous cell lung cancer. On follow-up, patient was made aware that this was cancerous, and now he needed right lower lobectomy. Today the patient underwent right lower lobectomy and lymph node dissection. Postoperatively patient was admitted to regular medical floor, and we were asked to see him on consultation. Presently the patient is asymptomatic. He has a right-sided chest tube. Denies any cough no wheezing no fever no chills no hemoptysis no chest pain. His postoperative pain is fairly well controlled. His postoperative chest x-ray showed no evidence of pneumothorax or complications. On 04/10/2019 patient is seen in follow-up on the selective care unit, he is awake and alert, in no acute distress, room air pulse ox is 96%, afebrile, hemodynamically stable, right-sided chest tube is in place, with small intermittent air leak with deep breathing and coughing, and there has been 197 mL of serosanguineous fluid in the lower back. I said chest tube is to wall suction, today's chest x-ray was reviewed, showing stable right-sided apical small pneumothorax and small bilateral lower lobe consolidation. His work on his incentive spirometer, he is able to achieve 2000 on the today. His pain is under reasonable control, right lateral and posterior chest incisions are covered with dressings, clean dry and intact. His labs have been reviewed, showing white blood cell count of 5.4, hemoglobin of 11.1, sodium of 131, potassium is 3.7, chloride was 98, CO2 is 26, BUN is 13 creatinine 0.92. Objective - Vital Signs Vital signs: Vital Signs Temp 98.1 F 07/12/19 04:00 Pulse 76 04/10/19 08:26 Resp 16 04/10/19 04:00 BP 104/59 04/10/19 04:00 Pulse Ox 96 04/10/19 08:16 Intake & Output 04/09/19 04/10/19 04/10/19 18:59 06:59 18:59 Intake Total 950 240 480 Output Total 367 105 Balance 583 135 480 Weight 85.2 kg Intake: IV 470 Oral 480 240 480 Output: Chest Tube Drainage 92 105 Chest Tube Right Lateral 92 105 Chest Urine 200 0 Estimated Blood Loss 75 Other: # Voids 1 - Exam GENERAL EXAM: Alert, pleasant, 68-year-old white male, in no acute distress, resting in bed,, comfortable in no apparent distress. HEAD: Normocephalic/atraumatic. EYES: Normal reaction of pupils, equal size. Conjunctiva pink, sclera white. NOSE: Clear with pink turbinates. THROAT: No erythema or exudates. NECK: No masses, no JVD, no thyroid enlargement, no adenopathy. CHEST: No chest wall deformity. Symmetrical expansion. Right-sided chest tube is in place to wall suction, with thin serosanguineous output in the Pleur-evac, with intermittent air leak with deep inspiration and coughing. Right lateral and right posterior chest incision is clean dry and intact, covered with dressings LUNGS: Equal air entry with bilateral posterior bases crackles, diminished breath sounds on the right base CVS: Regular rate and rhythm, normal S1 and S2, no gallops, no murmurs, no rubs ABDOMEN: Soft, nontender. No hepatosplenomegaly, normal bowel sounds, no guarding or rigidity. EXTREMITIES: No clubbing, no edema, no cyanosis, 2+ pulses and upper and lower extremities. MUSCULOSKELETAL: Muscle strength and tone normal. SPINE: No scoliosis or deformity SKIN: No rashes CENTRAL NERVOUS SYSTEM: Alert and oriented -3. No focal deficits, tone is normal in all 4 extremities. PSYCHIATRIC: Alert and oriented -3. Appropriate affect. Intact judgment and insight. - Labs CBC & Chem 7: 04/10/19 05:55 04/10/19 05:55 Labs: Abnormal Lab Results - Last 24 Hours (Table) 04/09/19 04/09/19 04/09/19 Range/Units 13:03 13:51 13:51 WBC 11.2 H (3.8-10.6) k/uL RBC (4.30-5.90) m/uL Hgb (13.0-17.5) gm/dL Hct (39.0-53.0) % Neutrophils # 10.0 H (1.3-7.7) k/uL Lymphocytes # 0.6 L (1.0-4.8) k/uL ABG pO2 70 L (83-108) mmHg Sodium (137-145) mmol/L Glucose 122 H (74-99) mg/dL Calcium (8.4-10.2) mg/dL 04/10/19 04/10/19 Range/Units 05:55 05:55 WBC (3.8-10.6) k/uL RBC 3.61 L (4.30-5.90) m/uL Hgb 11.1 L (13.0-17.5) gm/dL Hct 33.0 L (39.0-53.0) % Neutrophils # (1.3-7.7) k/uL Lymphocytes # (1.0-4.8) k/uL ABG pO2 (83-108) mmHg Sodium 131 L (137-145) mmol/L Glucose 117 H (74-99) mg/dL Calcium 8.2 L (8.4-10.2) mg/dL Assessment and Plan Plan: Assessment: 1 right lower lobe squamous cell carcinoma, status post right lower lobectomy and lymph node dissection postoperative day #1. 2 recent history of wedge resection of right lower lobe mass. Pathology came back positive for squamous cell lung cancer. 3 mild COPD, asymptomatic. 4 history of hypertension 5 history of hyperlipidemia. Plan: Continue encouraging deep breathing and coughing, incentive spirometry use, today's chest x-ray has been reviewed, showing small right apical pneumothorax, small bilateral pleural effusions, and atelectasis. Hemodynamically stable, patient is on room air, pain is under control, still has a small air leak with deep breathing and coughing, we'll continue to follow with CT surgery. I performed a history & physical examination of the patient and discussed their management with my nurse practitioner, Lindsay Camacho. I reviewed the nurse practitioner's note and agree with the documented findings and plan of care. Lung sounds are positive for diminished with bibasilar rales at the the lung bases. The findings and the impression was discussed with the patient. I attest to the documentation by the nurse practitioner. Time with Patient: Less than 30
--- NOTE | 2019-04-10 10:45 | P.PN ---
Subjective Progress Note Date: 04/10/19 Principal diagnosis: Lung cancer, poorly differentiated squamous cell carcinoma. Previous medical history of right thoracoscopic wedge resection of the mass to the lower lobe of the right lung on 02/19/2019, COPD with 72-[id number] smoking history, hypertension, hypercholesterolemia, and family history of cancer. POD #1 robotic assisted thoracoscopic right lower lobectomy with mediastinal lymph node dissection Patient currently sitting up in bed on the cardiac stepdown unit in no acute distress. States pain is well controlled on current medication regimen, tenacious of breath. Right pleural chest tube present to continuous wall suction, intermittent air leak present with forceful coughing. Patient remains hemodynamically stable. No new concerns. Objective - Vital Signs Vital signs: Vital Signs Temp 98.2 F 04/10/19 08:00 Pulse 76 04/10/19 08:26 Resp 16 04/10/19 08:00 BP 108/61 04/10/19 08:00 Pulse Ox 96 04/10/19 08:16 Intake & Output 04/09/19 04/10/19 04/10/19 18:59 06:59 18:59 Intake Total 950 240 480 Output Total 367 105 Balance 583 135 480 Weight 85.2 kg Intake: IV 470 Oral 480 240 480 Output: Chest Tube Drainage 92 105 Chest Tube Right Lateral 92 105 Chest Urine 200 0 Estimated Blood Loss 75 Other: # Voids 1 - Constitutional General appearance: Present: cooperative, no acute distress - Respiratory Details: Lungs sounds diminished with expiratory wheezes present. Respirations even, nonlabored. Currently on room air with oxygen saturation 96%. Able to achieve 2000 mL on his incentive spirometry. Right pleural chest tube to continuous wall suction, 105 mL serosanguineous drainage overnight, 450 mL since surgery, positive intermittent air leak present with forceful coughing. - Cardiovascular Details: S1, S2 present. Regular rate and rhythm, sinus rhythm to sinus bradycardia on telemetry. Palpable peripheral pulses bilaterally. No edema present. No calf pain or tenderness noted. SCDs present. - Gastrointestinal Gastrointestinal Comment(s): Abdomen soft, nontender, nondistended. Active bowel sounds times present 4 quadrants. Tolerating diet. - Genitourinary Genitourinary Comment(s): Voiding clear, yellow urine. - Integumentary Integumentary Comment(s): Skin is warm and dry with evidence of good perfusion. Right pleural chest tube site covered with dry intact dressing, right lateral chest wall incisions well approximated and covered with bandages. - Neurologic Neurologic: Present: CNII-XII intact - Musculoskeletal Musculoskeletal: Present: gait normal, strength equal bilaterally - Psychiatric Psychiatric: Present: A&O x's 3, appropriate affect, intact judgment & insight - Allied health notes Allied health notes reviewed: nursing - Labs CBC & Chem 7: 04/10/19 05:55 04/10/19 05:55 Labs: Abnormal Lab Results - Last 24 Hours (Table) 04/09/19 04/09/19 04/09/19 Range/Units 13:03 13:51 13:51 WBC 11.2 H (3.8-10.6) k/uL RBC (4.30-5.90) m/uL Hgb (13.0-17.5) gm/dL Hct (39.0-53.0) % Neutrophils # 10.0 H (1.3-7.7) k/uL Lymphocytes # 0.6 L (1.0-4.8) k/uL ABG pO2 70 L (83-108) mmHg Sodium (137-145) mmol/L Glucose 122 H (74-99) mg/dL Calcium (8.4-10.2) mg/dL 04/10/19 04/10/19 Range/Units 05:55 05:55 WBC (3.8-10.6) k/uL RBC 3.61 L (4.30-5.90) m/uL Hgb 11.1 L (13.0-17.5) gm/dL Hct 33.0 L (39.0-53.0) % Neutrophils # (1.3-7.7) k/uL Lymphocytes # (1.0-4.8) k/uL ABG pO2 (83-108) mmHg Sodium 131 L (137-145) mmol/L Glucose 117 H (74-99) mg/dL Calcium 8.2 L (8.4-10.2) mg/dL - Imaging and Cardiology Chest x-ray: report reviewed, image reviewed Assessment and Plan Assessment: 1. Lung cancer, poorly differentiated squamous cell carcinoma, status post robotic-assisted thoracoscopic right lower lobectomy with mediastinal lymph node dissection 2. History of right video-assisted thoracoscopic lower lobe wedge resection on 02/19/2019 3. COPD with 50-oovg-wotc smoking history 4. Hypertension 5. Hypercholesterolemia 6. Family history of cancer Plan: 1. Will place right pleural chest tube to waterseal. Monitor for resolution of air leak. 2. Encourage incentive spirometry use 10 times every hour while awake. 3. Increase activity, ambulate in hallway. 4. Pain control with current medication regimen. 5. Will monitor daily x-rays. 6. GI/DVT prophylaxis. 7. More recommendations to follow Time with Patient: Greater than 30
[2019-04-10] MEDS: ACETAMINOPHEN TAB 500 MG TAB PO PRN ×2 (14:51→21:28)
[2019-04-11] MEDS: KETOROLAC 30 MG/ML 1 ML VIAL IVP SCH ×4 (05:47→22:53)
[2019-04-11] MEDS: PANTOPRAZOLE 40 MG TABLET PO SCH (05:47)
[2019-04-11] MEDS: IPRATROPIUM-ALBUTEROL 3 ML NEB IH SCH ×4 (08:07→20:38)
--- NOTE | 2019-04-11 08:56 | XR ---
EXAMINATION TYPE: XR chest 2V DATE OF EXAM: 04/11/2019 COMPARISON: Chest x-ray from yesterday. HISTORY: Right sided partial pneumonectomy. TECHNIQUE: Frontal and lateral views of the chest are obtained. FINDINGS: There is stable right-sided chest tube. Stable small right apical pneumothorax. Background chronic emphysematous change and right-sided volume loss. Background tiny bilateral pleural effusion s. Cardiac silhouette size is stable and within normal limits. Osseous structures are intact. IMPRESSION: Overall stable findings, small right apical pneumothorax despite chest tube.
[2019-04-11] MEDS: ASPIRIN 81 MG PO SCH (09:14)
[2019-04-11] MEDS: ATORVASTATIN 10 MG TAB PO SCH (09:14)
[2019-04-11] MEDS: LISINOPRIL 5 MG TAB PO SCH (09:14)
[2019-04-11] MEDS: MONTELUKAST 10 MG TAB PO SCH (09:14)
[2019-04-11] MEDS: HEPARIN SODIUM,PORCINE 5,000 UNIT/ML 1 ML VIAL SQ SCH ×3 (09:14→22:52)
--- NOTE | 2019-04-11 09:27 | P.PN ---
Subjective Progress Note Date: 04/11/19 Principal diagnosis: Lung cancer, poorly differentiated squamous cell carcinoma. Previous medical history of right thoracoscopic wedge resection of the mass to the lower lobe of the right lung on 02/19/2019, COPD with 54-ewuh-qaxi smoking history, hypertension, hypercholesterolemia, and family history of cancer. POD #2 robotic assisted thoracoscopic right lower lobectomy with mediastinal lymph node dissection Patient currently sitting up in bed on the cardiac stepdown unit in no acute distress. States pain is well controlled on current medication regimen, denies shortness of breath. Right pleural chest tube present to continuous wall suction, intermittent air leak was present yesterday morning, did not appear to be present yesterday afternoon, this morning did not initially appear to be present with coughing but second episode of forceful coughing did produce small air leak. No new concerns, just anxious to be able to go home. He has been ambulating in the hallway. Objective - Vital Signs Vital signs: Vital Signs Temp 98.4 F 04/11/19 04:00 Pulse 84 04/11/19 08:18 Resp 18 04/11/19 04:00 BP 124/76 04/11/19 04:00 Pulse Ox 95 04/11/19 08:09 Intake & Output 04/10/19 04/11/19 04/11/19 18:59 06:59 18:59 Intake Total 840 310 Output Total 50 60 Balance 790 250 Intake: IV 10 Invasive Line 1 10 Oral 840 300 Output: Chest Tube Drainage 60 Chest Tube Right Lateral 60 Chest Drainage 50 Right Chest 50 Urine 0 Other: Voiding Method Toilet # Voids 3 1 1 - Constitutional General appearance: Present: cooperative, no acute distress - Respiratory Details: Lungs sounds diminished with coarse breath sounds in the right lung base. Respirations even, nonlabored. Currently on room air with oxygen saturation 95%. Able to achieve 2500 mL on his incentive spirometry. Right pleural chest tube to waterseal, 40 mL serosanguineous drainage overnight, 150 mL in the last 24 hours, positive intermittent air leak present with forceful coughing. - Cardiovascular Details: S1, S2 present. Regular rate and rhythm, sinus rhythm on telemetry. Palpable peripheral pulses bilaterally. No edema present. No calf pain or tenderness noted. SCDs present. - Gastrointestinal Gastrointestinal Comment(s): Abdomen soft, nontender, nondistended. Active bowel sounds times present 4 quadrants. Tolerating diet. - Genitourinary Genitourinary Comment(s): Voiding clear, yellow urine. - Integumentary Integumentary Comment(s): Skin is warm and dry with evidence of good perfusion. Right pleural chest tube site covered with dry intact dressing, right lateral chest wall incisions well approximated and covered with bandages. - Neurologic Neurologic: Present: CNII-XII intact - Musculoskeletal Musculoskeletal: Present: gait normal, strength equal bilaterally - Psychiatric Psychiatric: Present: A&O x's 3, appropriate affect, intact judgment & insight - Allied health notes Allied health notes reviewed: nursing - Labs CBC & Chem 7: 04/10/19 05:55 04/10/19 05:55 - Imaging and Cardiology Chest x-ray: report reviewed, image reviewed Assessment and Plan Assessment: 1. Lung cancer, poorly differentiated squamous cell carcinoma, status post robotic-assisted thoracoscopic right lower lobectomy with mediastinal lymph node dissection 2. History of right video-assisted thoracoscopic lower lobe wedge resection on 02/19/2019 3. COPD with 55-nbhn-dfzj smoking history 4. Hypertension 5. Hypercholesterolemia 6. Family history of cancer Plan: 1. Continue right pleural chest tube to waterseal. Monitor for resolution of air leak. Likely will discontinue chest tube tomorrow and DC patient to home Saturday. 2. Encourage incentive spirometry use 10 times every hour while awake. 3. Increase activity, ambulate in hallway. 4. Pain control with current medication regimen. 5. Will monitor daily x-rays. 6. GI/DVT prophylaxis. 7. More recommendations to follow Time with Patient: Greater than 30
--- NOTE | 2019-04-11 10:45 | P.PN ---
Subjective Progress Note Date: 04/11/19 Principal diagnosis: Squamous cell carcinoma of the right lower lobe. 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 Lee for abnormal CT of the chest, showing a cavitary right lower lobe mass. The mass measured 1.8 cm, patient had fairly good PFT with FEV1 of 82%. PET scan showed uptake in the mass without evidence of any other activity. The mass was highly suspicious for bronchogenic carcinoma. Dr. Lee felt that the patient had a stage I carcinoma and he was referred to Dr. Martinez. Patient had recent wedge resection and sure enough the biopsy was positive for squamous cell lung cancer. On follow-up, patient was made aware that this was cancerous, and now he needed right lower lobectomy. Today the patient underwent right lower lobectomy and lymph node dissection. Postoperatively patient was admitted to regular medical floor, and we were asked to see him on consultation. Presently the patient is asymptomatic. He has a right-sided chest tube. Denies any cough no wheezing no fever no chills no hemoptysis no chest pain. His postoperative pain is fairly well controlled. His postoperative chest x-ray showed no evidence of pneumothorax or complications. On 04/10/2019 patient is seen in follow-up on the selective care unit, he is awake and alert, in no acute distress, room air pulse ox is 96%, afebrile, hemodynamically stable, right-sided chest tube is in place, with small intermittent air leak with deep breathing and coughing, and there has been 197 mL of serosanguineous fluid in the lower back. I said chest tube is to wall suction, today's chest x-ray was reviewed, showing stable right-sided apical small pneumothorax and small bilateral lower lobe consolidation. His work on his incentive spirometer, he is able to achieve 2000 on the today. His pain is under reasonable control, right lateral and posterior chest incisions are covered with dressings, clean dry and intact. His labs have been reviewed, showing white blood cell count of 5.4, hemoglobin of 11.1, sodium of 131, potassium is 3.7, chloride was 98, CO2 is 26, BUN is 13 creatinine 0.92. The patient is seen today 04/11/2019 in follow-up on the selective care unit. He is currently sitting up in bed. Awake and alert in no acute distress. Maintaining good O2 saturations in the 90s on room air. He's been afebrile. Hemodynamically stable. Right-sided chest tube remains in place to waterseal. Leak is present. Small right apical pneumothorax per chest x-ray. He is working well with the incentive spirometer. Objective - Vital Signs Vital signs: Vital Signs Temp 97.8 F 04/11/19 08:00 Pulse 84 04/11/19 08:18 Resp 16 04/11/19 08:00 BP 126/67 04/11/19 08:00 Pulse Ox 95 04/11/19 08:09 Intake & Output 04/10/19 04/11/19 04/11/19 18:59 06:59 18:59 Intake Total 840 310 280 Output Total 50 60 Balance 790 250 280 Intake: IV 10 Invasive Line 1 10 Oral 840 300 280 Output: Chest Tube Drainage 60 Chest Tube Right Lateral 60 Chest Drainage 50 Right Chest 50 Urine 0 Other: Voiding Method Toilet # Voids 3 1 1 - Exam GENERAL EXAM: Alert, pleasant, 68-year-old male, in no acute distress, resting in bed, comfortable in no apparent distress. O2 saturation 97% on room air. HEAD: Normocephalic/atraumatic. EYES: Normal reaction of pupils, equal size. Conjunctiva pink, sclera white. NOSE: Clear with pink turbinates. THROAT: No erythema or exudates. NECK: No masses, no JVD, no thyroid enlargement, no adenopathy. CHEST: No chest wall deformity. Symmetrical expansion. Right-sided chest tube is in place to wall suction, with thin serosanguineous output in the Pleur-evac, with intermittent air leak with deep inspiration and coughing. Right lateral and right posterior chest incision is clean dry and intact, covered with dressings LUNGS: Equal air entry with bilateral posterior bases crackles, diminished breath sounds on the right base CVS: Regular rate and rhythm, normal S1 and S2, no gallops, no murmurs, no rubs ABDOMEN: Soft, nontender. No hepatosplenomegaly, normal bowel sounds, no guarding or rigidity. EXTREMITIES: No clubbing, no edema, no cyanosis, 2+ pulses and upper and lower extremities. MUSCULOSKELETAL: Muscle strength and tone normal. SPINE: No scoliosis or deformity SKIN: No rashes CENTRAL NERVOUS SYSTEM: No focal deficits, tone is normal in all 4 extremities. PSYCHIATRIC: Alert and oriented -3. Appropriate affect. Intact judgment and insight. - Labs CBC & Chem 7: 04/10/19 05:55 04/10/19 05:55 Assessment and Plan Assessment: Assessment: 1 right lower lobe squamous cell carcinoma, status post right lower lobectomy and lymph node dissection postoperative day #2. 2 recent history of wedge resection of right lower lobe mass. Pathology came back positive for squamous cell lung cancer. 3 mild COPD, asymptomatic. 4 history of hypertension 5 history of hyperlipidemia. Plan: The patient was seen and evaluated by Dr. Pena. Chest x-ray reviewed. Small apical pneumothorax. Chest tube remains in place. He is encouraged regarding increased use the incentive spirometer. Increase his activity as tolerated. We'll continue to follow make further recommendations based on his clinical status. I, the cosigning physician, performed a history & physical examination of the patient. Lungs sounds crackles in the right lung. Maintaining good O2 saturations in the 90s on room air. I discussed the assessment and plan of care with my nurse practitioner, Val Isaac. I attest to the above note as dictated by her.
[2019-04-11] MEDS: ACETAMINOPHEN TAB 500 MG TAB PO PRN (21:33)
[2019-04-12] MEDS: KETOROLAC 30 MG/ML 1 ML VIAL IVP SCH ×4 (05:53→22:49)
[2019-04-12] MEDS: PANTOPRAZOLE 40 MG TABLET PO SCH (05:53)
--- NOTE | 2019-04-12 07:23 | XR ---
EXAMINATION TYPE: XR chest 2V DATE OF EXAM: 04/12/2019 COMPARISON: 04/11/2019 INDICATION: Post lobectomy TECHNIQUE: Frontal and lateral views of the chest are obtained. FINDINGS: The heart size is normal. The pulmonary vasculature is normal. The lungs are clear. A right-sided chest tube is present. Minimal residual thorax is present right a pex. This is diminished from comparison.. IMPRESSION: 1. Diminishing residual right apical pneumothorax post lobectomy.
[2019-04-12] MEDS: IPRATROPIUM-ALBUTEROL 3 ML NEB IH SCH ×4 (07:43→19:27)
--- NOTE | 2019-04-12 08:07 | P.PN ---
Subjective Progress Note Date: 04/12/19 Principal diagnosis: Lung cancer, poorly differentiated squamous cell carcinoma. Previous medical history of right thoracoscopic wedge resection of the mass to the lower lobe of the right lung on 02/19/2019, COPD with 06-[id number]-[id number] smoking history, hypertension, hypercholesterolemia, and family history of cancer. POD #3 robotic assisted thoracoscopic right lower lobectomy with mediastinal lymph node dissection Patient currently sitting up in bed on the cardiac stepdown unit in no acute distress. States pain is well controlled on current medication regimen, denies shortness of breath. Right pleural chest tube present to [facility], no air leak present. No new concerns, just anxious to be able to go home. He has been ambulating in the hallway. Objective - Vital Signs Vital signs: Vital Signs Temp 98.0 F 04/12/19 04:00 Pulse 72 04/12/19 07:58 Resp 18 04/12/19 04:00 BP 118/70 04/12/19 04:00 Pulse Ox 97 04/12/19 07:46 Intake & Output 04/11/19 04/12/19 04/12/19 18:59 06:59 18:59 Intake Total 760 300 Output Total 0 160 Balance 760 140 Weight 83.1 kg Intake: Oral 760 300 Output: Chest Tube Drainage 120 Chest Tube Right Lateral 120 Chest Drainage 40 Right Chest 40 Urine 0 Other: Voiding Method Toilet Toilet # Voids 5 1 - Constitutional General appearance: Present: cooperative, no acute distress - Respiratory Details: Lungs sounds diminished bilaterally. Respirations even, nonlabored. Currently on room air with oxygen saturation 96%. Able to achieve 2500 mL on his incentive spirometry. [facility], 40 mL serosanguineous drainage overnight, 250 mL in the last 24 hours, no air leak present. - Cardiovascular Details: S1, S2 present. Regular rate and rhythm, sinus rhythm on telemetry. Palpable peripheral pulses bilaterally. No edema present. No calf pain or tenderness noted. SCDs present. - Gastrointestinal Gastrointestinal Comment(s): Abdomen soft, nontender, nondistended. Active bowel sounds times present 4 quadrants. Tolerating diet. - Genitourinary Genitourinary Comment(s): Voiding clear, yellow urine. - Integumentary Integumentary Comment(s): Skin is warm and dry with evidence of good perfusion. Right pleural chest tube site covered with dry intact dressing, right lateral chest wall incisions well approximated and covered with bandages. - Neurologic Neurologic: Present: CNII-XII intact - Musculoskeletal Musculoskeletal: Present: gait normal, strength equal bilaterally - Psychiatric Psychiatric: Present: A&O x's 3, appropriate affect, intact judgment & insight - Allied health notes Allied health notes reviewed: nursing - Labs CBC & Chem 7: 04/10/19 05:55 04/10/19 05:55 - Imaging and Cardiology Chest x-ray: report reviewed, image reviewed Assessment and Plan Assessment: 1. Lung cancer, poorly differentiated squamous cell carcinoma, status post robotic-assisted thoracoscopic right lower lobectomy with mediastinal lymph node dissection 2. History of right video-assisted thoracoscopic lower lobe wedge resection on 02/19/2019 3. COPD with [id number]-[id number] smoking history 4. Hypertension 5. Hypercholesterolemia 6. Family history of cancer Plan: 1. Likely will discontinue right pleural chest tube. Repeat chest x-ray in the morning and if stable may discharge to home. 2. Encourage incentive spirometry use 10 times every hour while awake. 3. Increase activity, ambulate in hallway. 4. Pain control with current medication regimen. 5. Will monitor daily x-rays. 6. GI/DVT prophylaxis. 7. More recommendations to follow Time with Patient: Greater than 30
[2019-04-12] MEDS: ATORVASTATIN 10 MG TAB PO SCH (08:24)
[2019-04-12] MEDS: MONTELUKAST 10 MG TAB PO SCH (08:24)
[2019-04-12] MEDS: LISINOPRIL 5 MG TAB PO SCH (08:24)
[2019-04-12] MEDS: ASPIRIN 81 MG PO SCH (08:24)
[2019-04-12] MEDS: HEPARIN SODIUM,PORCINE 5,000 UNIT/ML 1 ML VIAL SQ SCH ×3 (08:24→22:49)
--- NOTE | 2019-04-12 11:53 | P.PN ---
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 Lee for abnormal CT of the chest, showing a cavitary right lower lobe mass. The mass measured 1.8 cm, patient had fairly good PFT with FEV1 of 82%. PET scan showed uptake in the mass without evidence of any other activity. The mass was highly suspicious for bronchogenic carcinoma. Dr. Lee felt that the patient had a stage I carcinoma and he was referred to Dr. Martinez. Patient had recent wedge resection and sure enough the biopsy was positive for squamous cell lung cancer. On follow-up, patient was made aware that this was cancerous, and now he needed right lower lobectomy. Today the patient underwent right lower lobectomy and lymph node dissection. Postoperatively patient was admitted to regular medical floor, and we were asked to see him on consultation. Presently the patient is asymptomatic. He has a right-sided chest tube. Denies any cough no wheezing no fever no chills no hemoptysis no chest pain. His postoperative pain is fairly well controlled. His postoperative chest x-ray showed no evidence of pneumothorax or complications. On 04/10/2019 patient is seen in follow-up on the selective care unit, he is awake and alert, in no acute distress, room air pulse ox is 96%, afebrile, hemodynamically stable, right-sided chest tube is in place, with small intermittent air leak with deep breathing and coughing, and there has been 197 mL of serosanguineous fluid in the lower back. I said chest tube is to wall suction, today's chest x-ray was reviewed, showing stable right-sided apical small pneumothorax and small bilateral lower lobe consolidation. His work on his incentive spirometer, he is able to achieve 2000 on the today. His pain is under reasonable control, right lateral and posterior chest incisions are covered with dressings, clean dry and intact. His labs have been reviewed, showing white blood cell count of 5.4, hemoglobin of 11.1, sodium of 131, potassium is 3.7, chloride was 98, CO2 is 26, BUN is 13 creatinine 0.92. On 04/12/2019 patient seen in follow-up on selective care unit, his right-sided chest tube has been removed today, follow-up chest x-rays pending, this morning's chest x-ray showed diminished residual right apical pneumothorax post- lobectomy. Biopsy of the lymph nodes is still pending, vital signs are stable, patient is working on his incentive spirometer, chewing 2500 mL on the today. Labs have been reviewed, and are unremarkable with the exception of sodium which is 131, potassium is 3.7, the rest of electrolytes and renal profile within normal limits. Patient is tolerating ambulation. No acute events overnight. Lung sounds positive for diminished breath sounds over right lower lobe, and basilar crackles. No rhonchi, no wheezing. Objective - Vital Signs Vital signs: Vital Signs Temp 98.0 F 04/12/19 04:00 Pulse 70 04/12/19 11:26 Resp 16 04/12/19 08:00 BP 132/95 04/12/19 08:00 Pulse Ox 98 04/12/19 08:00 Intake & Output 04/11/19 04/12/19 04/12/19 18:59 06:59 18:59 Intake Total 760 300 180 Output Total 0 160 Balance 760 140 180 Weight 83.1 kg Intake: Oral 760 300 180 Output: Chest Tube Drainage 120 Chest Tube Right Lateral 120 Chest Drainage 40 Right Chest 40 Urine 0 Other: Voiding Method Toilet Toilet # Voids 5 1 - Exam GENERAL EXAM: Alert, pleasant, 68-year-old white male, in no acute distress, resting in bed,, comfortable in no apparent distress. HEAD: Normocephalic/atraumatic. EYES: Normal reaction of pupils, equal size. Conjunctiva pink, sclera white. NOSE: Clear with pink turbinates. THROAT: No erythema or exudates. NECK: No masses, no JVD, no thyroid enlargement, no adenopathy. CHEST: No chest wall deformity. Symmetrical expansion. Interval removal of the right-sided chest tube. Right lateral and right posterior chest incision is c lean dry and intact, covered with dressings LUNGS: Equal air entry with bilateral posterior bases crackles, diminished breath sounds on the right base CVS: Regular rate and rhythm, normal S1 and S2, no gallops, no murmurs, no rubs ABDOMEN: Soft, nontender. No hepatosplenomegaly, normal bowel sounds, no guarding or rigidity. EXTREMITIES: No clubbing, no edema, no cyanosis, 2+ pulses and upper and lower extremities. MUSCULOSKELETAL: Muscle strength and tone normal. SPINE: No scoliosis or deformity SKIN: No rashes CENTRAL NERVOUS SYSTEM: Alert and oriented -3. No focal deficits, tone is normal in all 4 extremities. PSYCHIATRIC: Alert and oriented -3. Appropriate affect. Intact judgment and insight. - Labs CBC & Chem 7: 04/10/19 05:55 04/10/19 05:55 Assessment and Plan Plan: Assessment: 1 right lower lobe squamous cell carcinoma, status post right lower lobectomy and lymph node dissection postoperative day #3. 2 recent history of wedge resection of right lower lobe mass. Pathology came back positive for squamous cell lung cancer. 3 mild COPD, asymptomatic. 4 history of hypertension 5 history of hyperlipidemia. Plan: Patient is doing well, his chest tube has been discontinued, follow-up chest x- ray in the morning, continue encouraging deep breathing and coughing, ambulation, vital signs are stable, biopsy results are pending, possible discharge in the morning I performed a history & physical examination of the patient and discussed their management with my nurse practitioner, Lindsay Camacho. I reviewed the nurse practitioner's note and agree with the documented findings and plan of care. Lung sounds are positive for diminished with bibasilar rales at the the lung bases. The findings and the impression was discussed with the patient. I attest to the documentation by the nurse practitioner. Time with Patient: Less than 30
[2019-04-12] MEDS: ACETAMINOPHEN TAB 500 MG TAB PO PRN (21:47)
[2019-04-13] MEDS: ACETAMINOPHEN TAB 500 MG TAB PO PRN (04:51)
[2019-04-13] MEDS: KETOROLAC 30 MG/ML 1 ML VIAL IVP SCH (06:04)
[2019-04-13] MEDS: PANTOPRAZOLE 40 MG TABLET PO SCH (06:04)
--- NOTE | 2019-04-13 08:04 | P.PN ---
Subjective Progress Note Date: 04/13/19 Principal diagnosis: Lung cancer, poorly differentiated squamous cell carcinoma. Previous medical history of right thoracoscopic wedge resection of the mass to the lower lobe of the right lung on 02/19/2019, COPD with 54-hpls-biyn smoking history, hypertension, hypercholesterolemia, and family history of cancer. POD #4 robotic assisted thoracoscopic right lower lobectomy with mediastinal lymph node dissection Patient is currently sitting up in bed in the cardiac stepdown unit in no acute distress. States he is having no pain, no shortness of breath. Right pleural chest tube was discontinued yesterday without incident. The patient has been ambulating around the hallway. No new concerns. Objective - Vital Signs Vital signs: Vital Signs Temp 98.0 F 04/13/19 04:00 Pulse 69 04/13/19 04:00 Resp 18 04/13/19 04:00 BP 122/70 04/13/19 04:00 Pulse Ox 95 04/13/19 04:00 Intake & Output 04/12/19 04/13/19 04/13/19 18:59 06:59 18:59 Intake Total 180 1050 Output Total 0 Balance 180 1050 Weight 82.4 kg Intake: IV 10 Invasive Line 1 10 Oral 180 1040 Output: Urine 0 Other: Voiding Method Toilet Toilet # Voids 1 - Constitutional General appearance: Present: cooperative, no acute distress - Respiratory Details: Lungs sounds diminished bilaterally. Respirations even, nonlabored. Currently on room air with oxygen saturation 95%. Able to achieve 2500 mL on his incentive spirometry. Strong cough. - Cardiovascular Details: S1, S2 present. Regular rate and rhythm, sinus rhythm on telemetry. Palpable peripheral pulses bilaterally. No edema present. No calf pain or tenderness noted. SCDs present. - Gastrointestinal Gastrointestinal Comment(s): Abdomen soft, nontender, nondistended. Active bowel sounds times present 4 quadrants. Tolerating diet. - Genitourinary Genitourinary Comment(s): Voiding clear, yellow urine. - Integumentary Integumentary Comment(s): Skin is warm and dry with evidence of good perfusion. Right pleural chest tube site covered with dry intact dressing, right lateral chest wall incisions well approximated and covered with bandages. - Neurologic Neurologic: Present: CNII-XII intact - Musculoskeletal Musculoskeletal: Present: gait normal, strength equal bilaterally - Psychiatric Psychiatric: Present: A&O x's 3, appropriate affect, intact judgment & insight - Allied health notes Allied health notes reviewed: nursing - Labs CBC & Chem 7: 04/10/19 05:55 04/10/19 05:55 - Imaging and Cardiology Chest x-ray: image reviewed Assessment and Plan Assessment: 1. Lung cancer, poorly differentiated squamous cell carcinoma, status post robotic-assisted thoracoscopic right lower lobectomy with mediastinal lymph node dissection 2. History of right video-assisted thoracoscopic lower lobe wedge resection on 02/19/2019 3. COPD with 28-zmkp-hebm smoking history 4. Hypertension 5. Hypercholesterolemia 6. Family history of cancer Plan: 1. Chest x-ray stable, will discharge to home. Follow-up appointments made. Patient does have our contact information in case he has any questions. 2. Right pleural chest tube site dressing should remained intact until tomorrow. After that point, patient may remove and shower daily. Patient was instructed of this. 3. Encourage incentive spirometry use 10 times every hour while awake. 4. Increase activity, ambulate in hallway. 5. Pain control with current medication regimen. 6. GI/DVT prophylaxis. Time with Patient: Greater than 30
[2019-04-13] MEDS: IPRATROPIUM-ALBUTEROL 3 ML NEB IH SCH (08:28)
[2019-04-13] MEDS: LISINOPRIL 5 MG TAB PO SCH (08:54)
[2019-04-13] MEDS: HEPARIN SODIUM,PORCINE 5,000 UNIT/ML 1 ML VIAL SQ SCH (08:54)
[2019-04-13] MEDS: ASPIRIN 81 MG PO SCH (08:55)
[2019-04-13] MEDS: ATORVASTATIN 10 MG TAB PO SCH (08:55)
[2019-04-13] MEDS: MONTELUKAST 10 MG TAB PO SCH (08:55)
[2019-04-13 09:03] VITALS: BP 123/67; PULSE 65; RESP 16; TEMP 97.7
--- NOTE | 2019-04-13 10:48 | XR ---
EXAMINATION TYPE: XR chest 2V DATE OF EXAM: 04/13/2019 COMPARISON: Prior chest x-ray 04/12/2019 HISTORY: Status post chest tube removal TECHNIQUE: Frontal and lateral views of the chest are obtained. FINDINGS: Right-sided chest tube has been removed. Minimal right apical pneumothorax is noted. There is persistent minimal bibasilar density. Heart size is stable. No other significant interval change. There are overlying cardiac leads. IMPRESSION: No evident complication status post chest tube removal. Minimal right apical pneumothora x, bibasilar atelectatic changes.
--- NOTE | 2019-04-13 13:48 | P.DS ---
Providers Date of admission: 04/09/19 06:00 Expected date of discharge: 04/13/19 Attending physician: Paulie Martinez Consults: 04/09/19 10:39 Consult Physician Routine Consulting Provider: Jon Pena Reason/Comments: Pulmonary management Do you want consulting provider notified?: Yes Primary care physician: [facility] Course: FINAL DIAGNOSIS: 1. Lung cancer, poorly differentiated squamous cell carcinoma 2. History of right thoracoscopic wedge resection of the mass to the right lower lobe of the lung on 02/19/2019 3. COPD with 54-wvgi-tupg smoking history 4. Hypertension 5. Hypercholesterolemia 6. Family history of cancer PRINCIPAL PROCEDURE: 1. Robotic-assisted thoracoscopic right lower lobectomy with mediastinal lymph node dissection HISTORY OF PRESENT ILLNESS: This is a 60-year-old gentleman who follows on an outpatient basis with Dr. Padilla and Jesus. Because of his 16-rppz-eqaf smoking history he had a computed tomography scan completed demonstrating a cavitary mass in the right lower lobe along with significant bullous disease consistent with COPD. This was confirmed on PET scan with positive uptake in the mass, no evidence of other abnormal uptake. Pulmonary function tests demonstrated moderate obstructive pulmonary disease with diffusion defect. He was referred to Dr. Martinez from cardiothoracic surgery and was recommended to undergo thoracoscopic wedge resection for diagnosis. This was completed in January 2019 and the pathology was positive for poorly differentiated squamous cell carcinoma, extending into the parenchyma margin. He was allowed adequate time to recover from that surgery and upon follow-up with Dr. Martinez he was recommended to undergo robotic right lower lobectomy. The usual perioperative course was discussed in detail with the patient and his family, all risks and benefits were explained, all questions were answered, and consent was obtained to proceed with surgery. The patient was scheduled for surgery at the earliest possible surgery date. HOSPITAL COURSE: The patient was brought to the hospital on 04/09/2019, taken to the preoperative area, prepared in the usual fashion, and subsequently taken to the operating room where Dr. Martinez performed a robotic-assisted thoracoscopic right lower lobectomy with mediastinal lymph node dissection. Upon completion of surgery the patient was extubated and taken to the recovery room where he was recovered and monitored hemodynamically. He was eventually admitted to 3 S. cardiac stepdown unit for further monitoring. On postoperative day #3 he exhibited no air leak, his chest tube was discontinued, and repeat chest x-ray was stable His oxygen was titrated down, he was tolerating oral diet, his pain was controlled, and he was ready to be discharged to home on postoperative day #4. He received written and verbal instruction regarding his medications, activity restrictions, signs and symptoms requiring physician notification, and follow-up appointments. COMPLICATIONS: The patient experienced no postoperative complications. Patient Condition at Discharge: Stable Plan - Discharge Summary Discharge Rx Participant: Yes New Discharge Prescriptions: Continue Montelukast [Singulair] 10 mg PO QAM Lisinopril [Zestril] 5 mg PO QAM Simvastatin [Zocor] 10 mg PO QAM Aspirin [Adult Low Dose Aspirin EC] 81 mg PO DAILY Acetaminophen Tab [Tylenol] 1,000 mg PO Q6HR PRN tab PRN Reason: Fever And/ Or Pain Discharge Medication List Aspirin [Adult Low Dose Aspirin EC] 81 mg PO DAILY 02/16/19 [History] Lisinopril [Zestril] 5 mg PO QAM 02/16/19 [History] Montelukast [Singulair] 10 mg PO QAM 02/16/19 [History] Simvastatin [Zocor] 10 mg PO QAM 02/16/19 [History] Acetaminophen Tab [Tylenol] 1,000 mg PO Q6HR PRN tab 02/20/19 [Rx] Follow up Appointment(s)/Referral(s): Paulie Martinez MD [STAFF PHYSICIAN] - 04/23/19 1:15 pm Chapito Padilla MD [Primary Care Provider] - 1 Week Mar Lee MD [STAFF PHYSICIAN] - 04/30/19 8:30 am Activity/Diet/Wound Care/Special Instructions: DISCHARGE INSTRUCTIONS: 1. No driving for 2 weeks, or until physician gives their ok. 2. No lifting, pushing, or pulling more than 10 pounds for 2 weeks. The physician will advise of any restriction changes. 3. Continue pain control per as needed orders. Alternate acetaminophen (Tylenol) and ibuprofen (Motrin/Advil) for pain. 4. Continue with incentive spirometry and splinting until otherwise directed by the physician. 5. Leave chest tube dressing for 48 hours. After that, remove all dressings and shower daily. 6. Routine incision care. No powders, lotions, ointments on incisions. 7. Please call surgeon/LUBRICATING SPECIALIST for temp greater than 101 F or purulent drainage from incisions. Discharge Disposition: HOME SELF-CARE
== END 2019-04-13 11:00 | disposition home or self-care (01) | DRG 164 ==
LOC: 2ORMAIN 06:00 → EDSTATUS 07:30 → 3SCARD 12:01
PROVIDERS: ADMIT Thoracic Surgery (Cardiothoracic Vascular Surgery); ATTEND Thoracic Surgery (Cardiothoracic Vascular Surgery)
PROC: 07B70ZZ Excision of Thorax Lymphatic, Open Approach (ICD-10-PCS; 2019-04-09)
PROC: 0BTF0ZZ Resection of Right Lower Lung Lobe, Open Approach (ICD-10-PCS; principal; 2019-04-09 07:30)
DX: C34.31 Malignant neoplasm of lower lobe, right bronchus or lung (principal); J93.82 Other air leak; J44.9 Chronic obstructive pulmonary disease, unspecified; E78.00 Pure hypercholesterolemia, unspecified; E78.5 Hyperlipidemia, unspecified; I10 Essential (primary) hypertension; J30.2 Other seasonal allergic rhinitis; R59.1 Generalized enlarged lymph nodes; Z79.82 Long term (current) use of aspirin; Z79.899 Other long term (current) drug therapy; Z87.891 Personal history of nicotine dependence; Z80.1 Family history of malignant neoplasm of trachea, bronchus and lung; Z80.42 Family history of malignant neoplasm of prostate; Z80.0 Family history of malignant neoplasm of digestive organs; Z80.8 Family history of malignant neoplasm of other organs or systems
CPT/HCPCS: 36600; 71045; 71046; 80048; 82805; 85025; 85027; 86850; 86900; 86901; 88305; 88309; 94640; 94760

== ENCOUNTER 2021-01-30 14:53 | Inpatient (IN) | payer MEDICARE ==
[2021-01-30] MEDS ORDERED: methylPREDNISolone SOD SUCCI 125 MG/2 ML VIAL IV STA (16:10)
[2021-01-30] MEDS ORDERED: ALBUTEROL NEBULIZED 2.5 MG/3 ML INHALATION STA (16:10)
[2021-01-30] MEDS ORDERED: SODIUM CHLORIDE 0.9% 500 ML 500 ML IV STA (16:10)
--- NOTE | 2021-01-30 16:22 | ED ---
SOB HPI - General Chief Complaint: Shortness of Breath Stated Complaint: Low oxygen levels Time Seen by Provider: 01/30/21 15:54 Source: patient, RN notes reviewed Mode of arrival: wheelchair Limitations: no limitations - History of Present Illness Initial Comments: 70-year-old white male patient, alert and oriented 4, presents to the emergency room with complaints of increasing shortness of breath and fatigue after diagnosis at [facility] in [place] yesterday with pneumonia. Patient states symptoms started on Saturday when he was out in the yard working and became very short of breath and fatigued. Patient states was tested for Covid yesterday and was negative. Patient denies fever, nausea, vomiting, or diarrhea. Patient denies chest pain. Patient denies any calf pain. Patient denies any hematochezia or hematemesis. Patient was prescribed an inhaler and antibiotics and has not had any relief. Patient's son brought him a pulse ox and it was reading 77% at home. 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 Does not receive chemotherapy or radiation. Oxygen saturation 92%, heart rate of 85, patient denies any pain.. MD Complaint: shortness of breath -: days(s) (2) Severity scale (1-10): 0 Improves With: rest Worsens With: movement, other (talking, exertion) Known History Of: other (RLL lobectomy - cancer) Context: other (pneumonia DX yesterday) Associated Symptoms: other (fatigue) Treatments Prior to Arrival: bronchodilator, other (antibiotics - 2 doses (unknown name)) - Related Data Home Medications Medication Instructions Recorded Confirmed Aspirin [Adult Low Dose Aspirin EC] 81 mg PO DAILY 02/16/19 04/09/19 Montelukast [Singulair] 10 mg PO QAM 02/16/19 04/09/19 Simvastatin [Zocor] 10 mg PO QAM 02/16/19 04/09/19 lisinopriL [Zestril] 5 mg PO QAM 02/16/19 04/09/19 Previous Rx's Medication Instructions Recorded Acetaminophen Tab [Tylenol] 1,000 mg PO Q6HR PRN tab 02/20/19 Allergies Allergy/AdvReac Type Severity Reaction Status Date / Time No Known Allergies Allergy Verified 01/30/21 15:09 Review of Systems ROS Statement: Those systems with pertinent positive or pertinent negative responses have been documented in the HPI. ROS Other: All systems not noted in ROS Statement are negative. Past Medical History Past Medical History: Hyperlipidemia, Hypertension Additional Past Medical History / Comment(s): Right lower lobe indicating pulmonary lesion, seasonal allergies History of Any Multi-Drug Resistant Organisms: None Reported Additional Past Surgical History / Comment(s): left leg vein stripping, (L) lower lobe lung removal. Past Anesthesia/Blood Transfusion Reactions: No Reported Reaction Additional Past Anesthesia/Blood Transfusion Reaction / Comment(s): no hx blood transfusion Past Psychological History: No Psychological Hx Reported Smoking Status: Never smoker Past Alcohol Use History: Occasional Past Drug Use History: None Reported - Past Family History Mother Family Medical History: Cancer Additional Family Medical History / Comment(s): pancreas Father Family Medical History: Cancer Additional Family Medical History / Comment(s): lung, prostate, skin Sister(s) Family Medical History: Cancer Additional Family Medical History / Comment(s): uterine General Exam Limitations: no limitations General appearance: alert, in no apparent distress Head exam: Present: atraumatic, normocephalic, normal inspection Eye exam: Present: normal appearance, PERRL, EOMI. Absent: scleral icterus, conjunctival injection, nystagmus, periorbital swelling, periorbital tenderness Pupils: Present: normal accommodation ENT exam: Present: normal exam, normal oropharynx (Tongue is green from drinking Powerade ), mucous membranes moist Neck exam: Present: normal inspection. Absent: tenderness, meningismus, lymphadenopathy Respiratory exam: Present: wheezes, other (Dyspneic with exertion). Absent: respiratory distress, chest wall tenderness, accessory muscle use, decreased breath sounds Cardiovascular Exam: Present: regular rate, normal rhythm, normal heart sounds. Absent: systolic murmur, diastolic murmur, rubs, gallop, clicks, JVD GI/Abdominal exam: Present: soft, normal bowel sounds. Absent: distended, tenderness, guarding, rebound, rigid Extremities exam: Present: normal inspection, full ROM, normal capillary refill. Absent: tenderness, pedal edema, joint swelling, calf tenderness Back exam: Present: normal inspection, full ROM, other (Approximately 6 cm incision from skin biopsy sutures intact no signs of infection). Absent: tenderness, CVA tenderness (R), CVA tenderness (L) Neurological exam: Present: alert, oriented X3 Psychiatric exam: Present: normal affect, normal mood Skin exam: Present: warm, dry, intact, normal color. Absent: rash, cyanosis, diaphoretic, erythema, petechiae, pallor, mottled Course Vital Signs 01/30/21 01/30/21 01/30/21 15:05 16:02 16:03 Temperature 98.1 F Pulse Rate 85 82 Respiratory 18 18 16 Rate Blood Pressure 128/75 122/75 O2 Sat by Pulse 92 L 90 L Oximetry 01/30/21 01/30/21 16:31 16:37 Temperature Pulse Rate 81 84 Respiratory Rate Blood Pressure O2 Sat by Pulse Oximetry Medical Decision Making - Medical Decision Making Troponin of 0.012, WBC count 6.9, hemoglobin and hematocrit is 13.7 and 38.8 respectively. Chest x-ray shows bilateral infiltrates which patient is already on doxycycline. Patient oxygen saturation on room air is 88%, will admit patient for failed outpatient therapy. Patient agreeable to this plan. Case di scussed with Dr. Kirkland who is agreeable to this plan. Dr. alaniz notified of admission will consult Dr. Lee for pulmonology. - Lab Data Result diagrams: 01/30/21 16:23 01/30/21 16:23 Lab Results 01/30/21 01/30/21 01/30/21 Range/Units 16:23 16:23 16:23 WBC 6.9 (3.8-10.6) k/uL RBC 4.38 (4.30-5.90) m/uL Hgb 13.7 (13.0-17.5) gm/dL Hct 38.8 L (39.0-53.0) % MCV 88.5 (80.0-100.0) fL MCH 31.3 (25.0-35.0) pg MCHC 35.4 (31.0-37.0) g/dL RDW 12.9 (11.5-15.5) % Plt Count 145 L (150-450) k/uL MPV 6.8 Neutrophils % 82 % Lymphocytes % 6 % Monocytes % 4 % Eosinophils % 7 % Basophils % 0 % Neutrophils # 5.7 (1.3-7.7) k/uL Lymphocytes # 0.4 L (1.0-4.8) k/uL Monocytes # 0.3 (0-1.0) k/uL Eosinophils # 0.5 (0-0.7) k/uL Basophils # 0.0 (0-0.2) k/uL Sodium 130 L (137-145) mmol/L Potassium 3.9 (3.5-5.1) mmol/L Chloride 97 L (98-107) mmol/L Carbon Dioxide 22 (22-30) mmol/L Anion Gap 11 mmol/L BUN 22 H (9-20) mg/dL Creatinine 0.90 (0.66-1.25) mg/dL Est GFR (CKD-EPI)AfAm >90 (>60 ml/min/1.73 sqM) Est GFR (CKD-EPI)NonAf 86 (>60 ml/min/1.73 sqM) Glucose 131 H (74-99) mg/dL Plasma Lactic Acid Rob 1.4 (0.7-2.0) mmol/L Calcium 8.4 (8.4-10.2) mg/dL Magnesium 2.0 (1.6-2.3) mg/dL Total Bilirubin 0.6 (0.2-1.3) mg/dL AST 45 (17-59) U/L ALT 15 (4-49) U/L Alkaline Phosphatase 52 (38-126) U/L Troponin I (0.000-0.034) ng/mL Total Protein 6.0 L (6.3-8.2) g/dL Albumin 3.6 (3.5-5.0) g/dL 01/30/21 Range/Units 16:23 WBC (3.8-10.6) k/uL RBC (4.30-5.90) m/uL Hgb (13.0-17.5) gm/dL Hct (39.0-53.0) % MCV (80.0-100.0) fL MCH (25.0-35.0) pg MCHC (31.0-37.0) g/dL RDW (11.5-15.5) % Plt Count (150-450) k/uL MPV Neutrophils % % Lymphocytes % % Monocytes % % Eosinophils % % Basophils % % Neutrophils # (1.3-7.7) k/uL Lymphocytes # (1.0-4.8) k/uL Monocytes # (0-1.0) k/uL Eosinophils # (0-0.7) k/uL Basophils # (0-0.2) k/uL Sodium (137-145) mmol/L Potassium (3.5-5.1) mmol/L Chloride (98-107) mmol/L Carbon Dioxide (22-30) mmol/L Anion Gap mmol/L BUN (9-20) mg/dL Creatinine (0.66-1.25) mg/dL Est GFR (CKD-EPI)AfAm (>60 ml/min/1.73 sqM) Est GFR (CKD-EPI)NonAf (>60 ml/min/1.73 sqM) Glucose (74-99) mg/dL Plasma Lactic Acid Rob (0.7-2.0) mmol/L Calcium (8.4-10.2) mg/dL Magnesium (1.6-2.3) mg/dL Total Bilirubin (0.2-1.3) mg/dL AST (17-59) U/L ALT (4-49) U/L Alkaline Phosphatase (38-126) U/L Troponin I <0.012 (0.000-0.034) ng/mL Total Protein (6.3-8.2) g/dL Albumin (3.5-5.0) g/dL - EKG Data EKG shows normal: sinus rhythm, intervals (Ventricular rate is 75, NH interval 0.16, QRS of 0.90, QTC of 0.451) When compared to previous EKG there are: no significant change (01/30/2021) Disposition Clinical Impression: Pneumonia Disposition: [facility] Condition: Fair Referrals: Dimitrios Beltran MD [Primary Care Provider] - 1-2 days Decision Date: 01/30/21 Decision Time: 17:30
[2021-01-30 16:31] LABS: Basophils % (A) 0 %; Eosinophils # (A) 0.5 k/uL (0-0.7); Eosinophils % (A) 7 %; HCT 38.8 % (39.0-53.0); HGB 13.7 gm/dL (13.0-17.5); Lymphocytes # (A) 0.4 k/uL (1.0-4.8); Lymphocytes % (A) 6 %; MCH 31.3 pg (25.0-35.0); MCHC 35.4 g/dL (31.0-37.0); MCV 88.5 fL (80.0-100.0); Mean Platelet Volume 6.8; Monocytes # (A) 0.3 k/uL (0-1.0); Monocytes % (A) 4 %; Neutrophils # (A) 5.7 k/uL (1.3-7.7); Neutrophils % (A) 82 %; Platelet Count 145 k/uL (150-450); RBC 4.38 m/uL (4.30-5.90); RDW 12.9 % (11.5-15.5); WBC 6.9 k/uL (3.8-10.6)
--- NOTE | 2021-01-30 16:37 | XR ---
EXAMINATION TYPE: XR chest 2V DATE OF EXAM: 01/30/2021 COMPARISON: 04/30/2019. HISTORY: Difficulty breathing and fever. TECHNIQUE: Frontal and lateral views of the chest are obtained. FINDINGS: There is diffuse moderate patchy opacity in right lower. There is mild to moderate involve ment of the left predominantly the perihilar and bibasilar space. No pleural effusion, or pneumothora x seen. The cardiac silhouette size is within normal limits. The osseous structures are intact. IMPRESSION: Bilateral infiltrates.
[2021-01-30 16:41] LABS: ALT 15 U/L (4-49); AST 45 U/L (17-59); African American GFR (CKD) >90 (>60 ml/min/1.73 sqM); Albumin 3.6 g/dL (3.5-5.0); Alkaline Phosphatase 52 U/L (38-126); Anion Gap 11 mmol/L; Blood Urea Nitrogen 22 mg/dL (9-20); Calcium 8.4 mg/dL (8.4-10.2); Carbon Dioxide 22 mmol/L (22-30); Chloride 97 mmol/L (98-107); Glucose 131 mg/dL (74-99); Non-African American GFR(CKD) 86 (>60 ml/min/1.73 sqM); Potassium 3.9 mmol/L (3.5-5.1); Sodium 130 mmol/L (137-145); Total Bilirubin 0.6 mg/dL (0.2-1.3)
[2021-01-30 17:04] LABS: Partial Thromboplastin Time 27.5 sec (22.0-30.0); Prothrombin Time 10.5 sec (9.0-12.0)
[2021-01-30] MEDS ORDERED: NALOXONE 0.4 MG/ML 1 ML VIAL IV PRN (17:29)
[2021-01-30] MEDS ORDERED: AZITHROMYCIN 500 MG in SODIUM CHLORIDE 0.9% 250 ML IVPB STA (17:29)
[2021-01-30 17:37] LABS: D-Dimer 4.19 mg/L FEU (<0.60)
--- NOTE | 2021-01-30 20:09 | CT ---
EXAMINATION TYPE: CT chest angio for PE DATE OF EXAM: 01/30/2021 COMPARISON: Same day radiographs and prior. HISTORY: Shortness of breath, elevated d-dimer. CT DLP: 372.9 mGycm Automated exposure control for dose reduction was used. CONTRAST: CT Chest for pulmonary embolism performed with with IV Contrast, patient injected with 100 mL of Isov ue 370. FINDINGS: LUNGS: There is moderate to severe centrilobular emphysema. There is superimposed bilateral diffuse m ild to moderate patchy opacities predominantly in the upper lobes. There are mild to moderate right a nd small left pleural effusions. There is 0.8 cm pulmonary nodule in the right lower lobe. No pneumot horax. MEDIASTINUM: There is satisfactory enhancement of the pulmonary artery and its branches, there is no CT evidence for pulmonary embolism. There are scattered multiple borderline to mildly enlarged media stinal lymph nodes, may be reactive. No pericardial effusion is seen. OTHER: No additional significant abnormality is seen. IMPRESSION: No acute PE. Moderate to severe emphysema with superimposed diffuse patchy opacities, concerning for acute compone nt/infiltrates. Mild to moderate pleural effusions. Indeterminate 8 mm right lower lobe nodule. Recommend appropriate workup.
[2021-01-31] MEDS ORDERED: IPRATROPIUM-ALBUTEROL 3 ML NEB INHALATION PRN (07:58)
[2021-01-31] MEDS ORDERED: guaiFENesin-DM 600/30MG 1 EACH TAB.ER.12H PO PRN (07:58)
[2021-01-31] MEDS: CYANOCOBALAMIN 500 MCG TAB PO SCH (08:54)
[2021-01-31] MEDS: ASPIRIN 81 MG PO SCH (08:54)
[2021-01-31] MEDS: CHOLECALCIFEROL 25 MCG (1000 IU) TABLET PO SCH (08:54)
[2021-01-31] MEDS: ZINC SULFATE 220 MG CAP PO SCH (08:54)
[2021-01-31] MEDS: ATORVASTATIN 10 MG TAB PO SCH (08:54)
[2021-01-31] MEDS: ASCORBIC ACID 500 MG TAB PO SCH (08:54)
[2021-01-31] MEDS: SODIUM CHLORIDE 0.9% 1,000 ML IV SCH (08:55)
[2021-01-31] MEDS: AZITHROMYCIN 500 MG TAB PO SCH (08:58)
[2021-01-31] MEDS: ACETAMINOPHEN TAB 325 MG TAB PO PRN ×2 (08:58→16:13)
[2021-01-31] MEDS ORDERED: lisinopriL 10 MG TAB PO SCH (09:00)
[2021-01-31] MEDS ORDERED: predniSONE 20 MG TAB PO SCH (09:00)
--- NOTE | 2021-01-31 09:53 | P.HPIM ---
History of Present Illness 70-year-old male came in with the complains of shortness of breath and fatigue and some cough. Patient is found to have be wheezing admitted for COPD exacerbation. Patient had a computed tomography scan of the chest which showed significant emphysema with some infiltrate bilaterally. Patient does have history of small cell lung cancer and right lung lower lobe lobectomy. Patient was discharged yesterday from [facility] after he was treated for COPD and possible atypical pneumonia patient was on doxycycline. Patient does have some atypical infiltrates with some bilateral pleural effusions. BNP will be obtained echocardiogram is also being obtained pulmonology was consulted. Patient doesn't usually use oxygen at home presently on 2 L of oxygen. Patient denied desaturated to around 77%. Patient did not receive chemotherapy or radiation therapy. Review of Systems REVIEW OF SYSTEMS: CONSTITUTIONAL: No fever, no malaise, no fatigue. HEENT: No recent visual problems or hearing problems. Denied any sore throat. CARDIOVASCULAR: No chest pain, orthopnea, PND, no palpitations, no syncope. PULMONARY: no hemoptysis. GASTROINTESTINAL: No diarrhea, no nausea, no vomiting, no abdominal pain. NEUROLOGICAL: No headaches, no weakness, no numbness. HEMATOLOGICAL: Denies any bleeding or petechiae. GENITOURINARY: Denies any burning micturition, frequency, or urgency. MUSCULOSKELETAL/RHEUMATOLOGICAL: Denies any joint pain, swelling, or any muscle pain. ENDOCRINE: Denies any polyuria or polydipsia. The rest of the 14-point review of systems is negative. Past Medical History Past Medical History: Hyperlipidemia, Hypertension Additional Past Medical History / Comment(s): Right lower lobe indicating pulm onary lesion, seasonal allergies History of Any Multi-Drug Resistant Organisms: None Reported Additional Past Surgical History / Comment(s): left leg vein stripping, (L) lower lobe lung removal. Past Anesthesia/Blood Transfusion Reactions: No Reported Reaction Additional Past Anesthesia/Blood Transfusion Reaction / Comment(s): no hx blood transfusion Past Psychological History: No Psychological Hx Reported Smoking Status: Former smoker Past Alcohol Use History: Occasional Additional Past Alcohol Use History / Comment(s): smoked on and off for 45 yrs, last smoked sep 2018 Past Drug Use History: None Reported - Past Family History Mother Family Medical History: Cancer Additional Family Medical History / Comment(s): pancreas Father Family Medical History: Cancer Additional Family Medical History / Comment(s): lung, prostate, skin Sister(s) Family Medical History: Cancer Additional Family Medical History / Comment(s): uterine Medications and Allergies Home Medications Medication Instructions Recorded Confirmed Type Aspirin [Adult Low Dose Aspirin EC] 81 mg PO DAILY 02/16/19 01/30/21 History Simvastatin [Zocor] 10 mg PO DAILY 02/16/19 01/30/21 History Albuterol Inhaler [Ventolin Hfa 2 puff INHALATION RT-QID PRN 01/30/21 01/30/21 History Inhaler] Ascorbic Acid [Vitamin C] 1,000 mg PO DAILY 01/30/21 01/30/21 History Cholecalciferol [Vitamin D3 (25 50 mcg PO DAILY 01/30/21 01/30/21 History Mcg = 1000 Iu)] Cyanocobalamin (Vitamin B-12) 1,000 mcg PO DAILY 01/30/21 01/30/21 History [Vitamin B-12] Doxycycline Hyclate [Vibramycin] 100 mg PO BID 01/30/21 01/30/21 History Lisinopril [Zestril] 10 mg PO DAILY 01/30/21 01/30/21 History Mucinex Fast-Max Conges-Cough 1 tab PO Q6H PRN 01/30/21 01/30/21 History Zinc 50 mg PO DAILY 01/30/21 01/30/21 History Allergies Allergy/AdvReac Type Severity Reaction Status Date / Time No Known Allergies Allergy Verified 01/30/21 17:43 Physical Exam Vitals: Vital Signs Temp Pulse Pulse Resp BP BP Pulse Ox 01/31/21 08:00 98.4 F 78 16 122/77 92 L 01/31/21 03:13 97.8 F 77 18 119/72 01/30/21 21:46 98.0 F 77 18 121/77 94 L 01/30/21 20:55 87 18 94 L 01/30/21 19:24 98.7 F 83 18 112/73 94 L 01/30/21 16:37 84 01/30/21 16:31 81 01/30/21 16:03 16 01/30/21 16:02 82 18 122/75 90 L 01/30/21 15:05 98.1 F 85 18 128/75 92 L Intake and Output 01/30/21 01/31/21 01/31/21 22:59 06:59 14:59 Other: Voiding Method Toilet # Voids 2 Weight 79.379 kg PHYSICAL EXAMINATION: GENERAL: The patient is alert and oriented x3, not in any acute distress. Well developed, well nourished. HEENT: Pupils are round and equally reacting to light. EOMI. No scleral icterus. No conjunctival pallor. Normocephalic, atraumatic. No pharyngeal erythema. No thyromegaly. CARDIOVASCULAR: S1 and S2 present. No murmurs, rubs, or gallops. PULMONARY: Expiratory wheezing on exam ABDOMEN: Soft, nontender, nondistended, normoactive bowel sounds. No palpable organomegaly. MUSCULOSKELETAL: No joint swelling or deformity. EXTREMITIES: No cyanosis, clubbing, or pedal edema. NEUROLOGICAL: Gross neurological examination did not reveal any focal deficits. SKIN: No rashes. Results CBC & Chem 7: 01/30/21 16:23 01/30/21 16:23 Labs: Abnormal Lab Results - Last 24 Hours (Table) 01/30/21 01/30/21 01/30/21 Range/Units 16:23 16:23 16:23 Hct 38.8 L (39.0-53.0) % Plt Count 145 L (150-450) k/uL Lymphocytes # 0.4 L (1.0-4.8) k/uL D-Dimer 4.19 H (<0.60) mg/L FEU Sodium 130 L (137-145) mmol/L Chloride 97 L (98-107) mmol/L BUN 22 H (9-20) mg/dL Glucose 131 H (74-99) mg/dL Total Protein 6.0 L (6.3-8.2) g/dL Thrombosis Risk Factor Assmnt - Choose All That Apply Each Factor Represents 1 point: Serious lung disease incl. pneumonia (< 1month) Each Risk Factor Represents 2 Points: Age 61-74 years Thrombosis Risk Factor Assessment Total Risk Factor Score: 3 Thrombosis Risk Factor Assessment Level: Moderate Risk Assessment and Plan Plan: -Shortness of breath: Secondary to COPD exacerbation that may be some atypical pneumonia patient does have infiltrate will get the opinion of pulmonology was started on azithromycin and oral steroids. Obtain echocardiogram because of bilateral pleural effusions also BNP patient doesn't have any significant pedal edema, patient did quit smoking. -Hypervolemic hyponatremia patient will be started on IV fluids and recheck the sodium tomorrow -Hypertension -Hyperlipidemia -DVT prophylaxis Lovenox
--- NOTE | 2021-01-31 11:27 | ECHOF ---
Referral Reason:shortness of breath MEASUREMENTS -------- HEIGHT: 180.3 cm WEIGHT: 79.4 kg BP: RVIDd: 3.2 cm (< 3.3) IVSd: 1.2 cm (0.6 - 1.1) LVIDd: 4.5 cm (3.9 - 5.3) LVPWd: 1.3 cm (0.6 - 1.1) IVSs: 1.7 cm LVIDs: 2.2 cm LVPWs: 1.9 cm LAESV Index (A-L): 17.18 ml/m Ao Diam: 3.3 cm (2.0 - 3.7) AV Cusp: 1.7 cm (1.5 - 2.6) LA Diam: 2.6 cm (2.7 - 3.8) MV EXCURSION: 18.048 mm (> 18.000) MV EF SLOPE: 133 mm/s (70 - 150) EPSS: 2.2 cm MV E Derian: 0.89 m/s MV DecT: 170 ms MV A Derian: 1.33 m/s MV E/A Ratio: 0.67 RAP: 5.00 mmHg RVSP: 20.19 mmHg FINDINGS -------- Sinus rhythm. This was a technically adequate study. The left ventricular size is normal. There is mild concentric left ventricular hypertrophy. Overa ll left ventricular systolic function is normal with, an EF between 55 - 60 %. The diastolic fillin g pattern is normal for the age of the patient 13.99. The right ventricle is normal in size. Normal LA size by volume 22+/-6 ml/m2. The right atrial size is normal. There is mild aortic valve sclerosis. The mitral valve is normal. Mild mitral regurgitation is present. The tricuspid valve appears structurally normal. Mild tricuspid regurgitation present. Right vent ricular systolic pressure is normal at < 35 mmHg. There is no pulmonic regurgitation present. The aortic root size is normal. Normal inferior vena cava with normal inspiratory collapse consistent with estimated right atrial pre ssure of 5 mmHg. There is no pericardial effusion. CONCLUSIONS -------- 1. There is mild concentric left ventricular hypertrophy. 2. Overall left ventricular systolic function is normal with, an EF between 55 - 60 %. 3. Normal LA size by volume 22+/-6 ml/m2. 4. There is mild aortic valve sclerosis. 5. Mild mitral regurgitation is present. 6. Mild tricuspid regurgitation present. 7. There is no pericardial effusion. BOILING HOUSE HAND: Tamy Damon RDCS
[2021-01-31] MEDS: methylPREDNISolone SOD SUCCI 125 MG/2 ML VIAL IV SCH ×2 (11:48→17:20)
[2021-01-31] MEDS: IPRATROPIUM-ALBUTEROL 3 ML NEB INHALATION SCH ×4 (11:56→19:35)
--- NOTE | 2021-01-31 14:37 | P.CNPUL ---
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 No mediastinal lymphadenopathy. The patient had a T1b, N0 M0 disease without any significant disease recurrence. He did have a follow-up CAT scan of the chest that was an done on 06/13/2020 and it showed postoperative changes and emphysema without any other acute abnormalities. The patient was doing well up to around a week ago he started having increased shortness of breath, fatigue and cough. Was found t o have increased dyspnea and wheeze. He went to have a [facility] in [place] where he was seen in the emergency department and he was diagnosed having an atypical pneumonia and he was given doxycycline. Following discharge, the patient presented to our emergency department. He was hospitalized for bilateral erythematous admission that showed no this of any pulmonary embolism. It showed moderate to severe centrilobular emphysema and there was diffuse bilateral mild to moderate patchy opacities predominantly in the upper lobes and mild to moderate right and small left-sided pleural effusion. There was an 8 mm nodule in the right lower lobe area. The patient's has already been vaccinated for COVID-19. His COVID-19 by PCR came back negative on 2 separate occasions. His white cell count is at 6.9 with a hemoglobin of 13.7. His d-dimer was at 4.19, sodium was at 1:30, BUN is was 22 with a creatinine of 0.9, proBNP level was 460 with a troponin of less than 0.01. The rest of the vital screen including influenza A and influenza B and RSV and COVID-19 came back all negative. The patient was found to be hypoxic on 2 L about 2 by nasal cannula with a pulse ox of 92%. His breathing is nonlabored. He is afebrile with a temperature of 98.4. Preserved LV function with an ejection fraction of 55-60%. No other significant abnormalities noted. No signs of any fluid overload. Review of Systems CONSTITUTIONAL: No fever, no malaise, no fatigue. HEENT: No recent visual problems or hearing problems. Denied any sore throat. CARDIOVASCULAR: No chest pain, orthopnea, PND, no palpitations, no syncope. PULMONARY: no hemoptysis. GASTROINTESTINAL: No diarrhea, no nausea, no vomiting, no abdominal pain. NEUROLOGICAL: No headaches, no weakness, no numbness. HEMATOLOGICAL: Denies any bleeding or petechiae. GENITOURINARY: Denies any burning micturition, frequency, or urgency. MUSCULOSKELETAL/RHEUMATOLOGICAL: Denies any joint pain, swelling, or any muscle pain. ENDOCRINE: Denies any polyuria or polydipsia. Past Medical History Past Medical History: Hyperlipidemia, Hypertension Additional Past Medical History / Comment(s): COPD, non-small cell lung cancer History of Any Multi-Drug Resistant Organisms: None Reported Additional Past Surgical History / Comment(s): left leg vein stripping, (L) lower lobe lung removal. Past Anesthesia/Blood Transfusion Reactions: No Reported Reaction Additional Past Anesthesia/Blood Transfusion Reaction / Comment(s): no hx blood transfusion Past Psychological History: No Psychological Hx Reported Smoking Status: Former smoker Past Alcohol Use History: Occasional Additional Past Alcohol Use History / Comment(s): smoked on and off for 45 yrs, last smoked sep 2018 Past Drug Use History: None Reported - Past Family History Mother Family Medical History: Cancer Additional Family Medical History / Comment(s): pancreas Father Family Medical History: Cancer Additional Family Medical History / Comment(s): lung, prostate, skin Sister(s) Family Medical History: Cancer Additional Family Medical History / Comment(s): uterine Medications and Allergies Home Medications Medication Instructions Recorded Confirmed Type Aspirin [Adult Low Dose Aspirin EC] 81 mg PO DAILY 02/16/19 01/30/21 History Simvastatin [Zocor] 10 mg PO DAILY 02/16/19 01/30/21 History Albuterol Inhaler [Ventolin Hfa 2 puff INHALATION RT-QID PRN 01/30/21 01/30/21 History Inhaler] Ascorbic Acid [Vitamin C] 1,000 mg PO DAILY 01/30/21 01/30/21 History Cholecalciferol [Vitamin D3 (25 50 mcg PO DAILY 01/30/21 01/30/21 History Mcg = 1000 Iu)] Cyanocobalamin (Vitamin B-12) 1,000 mcg PO DAILY 01/30/21 01/30/21 History [Vitamin B-12] Doxycycline Hyclate [Vibramycin] 100 mg PO BID 01/30/21 01/30/21 History Lisinopril [Zestril] 10 mg PO DAILY 01/30/21 01/30/21 History Mucinex Fast-Max Conges-Cough 1 tab PO Q6H PRN 01/30/21 01/30/21 History Zinc 50 mg PO DAILY 01/30/21 01/30/21 History Allergies Allergy/AdvReac Type Severity Reaction Status Date / Time No Known Allergies Allergy Verified 01/30/21 17:43 Physical Exam Vitals: Vital Signs Temp Pulse Pulse Resp BP BP Pulse Ox 01/31/21 12:10 84 01/31/21 11:58 82 01/31/21 08:00 98.4 F 78 16 122/77 92 L 01/31/21 03:13 97.8 F 77 18 119/72 01/30/21 21:46 98.0 F 77 18 121/77 94 L 01/30/21 20:55 87 18 94 L 01/30/21 19:24 98.7 F 83 18 112/73 94 L 01/30/21 16:37 84 01/30/21 16:31 81 01/30/21 16:03 16 01/30/21 16:02 82 18 122/75 90 L 01/30/21 15:05 98.1 F 85 18 128/75 92 L Intake and Output 01/30/21 01/31/21 01/31/21 22:59 06:59 14:59 Other: Voiding Method Toilet Toilet # Voids 2 Weight 79.379 kg GENERAL: The patient is alert and oriented x3, not in any acute distress. Well developed, well nourished. Head exam was generally normal. There was no scleral icterus or corneal arcus. Mucous membranes were moist. Neck was supple and without jugular venous distension, thyromegaly, or carotid bruits. Carotids were easily palpable bilaterally. There was no adenopathy. CARDIOVASCULAR: S1 and S2 present. No murmurs, rubs, or gallops. PULMONARY: Expiratory wheezing on exam, diminished breath sound bilaterally along with diffuse extremity wheezes heard throughout the lung chery bilaterally. ABDOMEN: Soft, nontender, nondistended, normoactive bowel sounds. No palpable organomegaly. MUSCULOSKELETAL: No joint swelling or deformity. EXTREMITIES: No cyanosis, clubbing, or pedal edema. NEUROLOGICAL: Gross neurological examination did not reveal any focal deficits. Examination of the skin revealed no evidence of significant rashes, suspicious appearing nevi or other concerning lesions. Results - Laboratory Findings CBC and BMP: 01/30/21 16:23 01/30/21 16:23 PT/INR, D-dimer PT 10.5 sec (9.0-12.0) 01/30/21 16: INR 1.0 (<1.2) 01/30/21 16:23 D-Dimer 4.19 mg/L FEU (<0.60) H 01/30/21 16:23 Abnormal lab findings: Abnormal Labs 01/30/21 01/30/21 01/30/21 16:23 16:23 16:23 Hct 38.8 L Plt Count 145 L Lymphocytes # 0.4 L D-Dimer 4.19 H Sodium 130 L Chloride 97 L BUN 22 H Glucose 131 H Total Protein 6.0 L - Diagnostic Findings Chest x-ray: image reviewed CT scan - chest: image reviewed Assessment and Plan Plan: 1 acute bilateral pulmonary infiltrates, likely secondary to pneumonia as the patient developed new bilateral pulmonary infiltrates compared to the last CAT scan of the chest that was done in May 2020. No significant leukocytosis. No fever. No signs of any decompensated heart failure. vaccinated for COVID-19 and the repeat COVID-19 testing by PCR 2 was negative 2 acute COPD exacerbation secondary to above 3 acute hypoxic respiratory failure secondary to above 4 history of non-small cell lung cancer, stage IA, squamous cell type, post right lower lobe resection back in 2018 without evidence of any disease recurrence 5 history of COPD with a FEV1 of 71% of predicted. 6 hyperlipidemia 7 hypertension Plan Check sputum Gram stain and culture Check a Legionella urine antigen Put the patient on a combination of Rocephin and Zithromax IV Solu-Medrol DuoNeb the right treatment [id number] Echocardiogram was noted ProBNP level was nonelevated Check a pro-calcitonin level We'll continue to follow.
[2021-02-01] MEDS: SODIUM CHLORIDE 0.9% 1,000 ML IV SCH (00:12)
[2021-02-01] MEDS: methylPREDNISolone SOD SUCCI 125 MG/2 ML VIAL IV SCH ×3 (00:17→11:56)
[2021-02-01 07:53] VITALS: BP 116/67; TEMP 97.7
[2021-02-01] MEDS: IPRATROPIUM-ALBUTEROL 3 ML NEB INHALATION SCH ×2 (08:18→11:37)
[2021-02-01] MEDS: AZITHROMYCIN 500 MG TAB PO SCH (08:50)
[2021-02-01] MEDS: CHOLECALCIFEROL 25 MCG (1000 IU) TABLET PO SCH (08:50)
[2021-02-01] MEDS: ASCORBIC ACID 500 MG TAB PO SCH (08:50)
[2021-02-01] MEDS: ASPIRIN 81 MG PO SCH (08:50)
[2021-02-01] MEDS: ZINC SULFATE 220 MG CAP PO SCH (08:50)
[2021-02-01] MEDS: ATORVASTATIN 10 MG TAB PO SCH (08:51)
[2021-02-01] MEDS: ACETAMINOPHEN TAB 325 MG TAB PO PRN (08:51)
[2021-02-01] MEDS: CYANOCOBALAMIN 500 MCG TAB PO SCH (08:51)
[2021-02-01] MEDS ORDERED: ENOXAPARIN 40 MG/0.4 ML SYRINGE SQ SCH (09:00)
[2021-02-01 10:17] LABS: HCT 32.5 % (39.6-50.0); HGB 11.4 g/dL (13.0-17.0); MCH 30.8 pg (27.0-32.0); MCHC 35.1 g/dL (32.0-37.0); MCV 87.8 fL (80.0-97.0); Mean Platelet Volume 10.1 fL (9.5-12.2); Platelet Count 173 X 10*3/uL (140-440); RDW 13.2 % (11.5-14.5); WBC 8.87 X 10*3/uL (4.50-10.00)
[2021-02-01 11:16] VITALS: RESP 18
[2021-02-01 11:41] VITALS: PULSE 68
--- NOTE | 2021-02-01 12:29 | P.DS ---
Providers Date of admission: 01/30/21 17:36 Attending physician: Kamran Brown MD Consults: 01/30/21 17:29 Consult Physician Stat Consulting Provider: Mar Lee Consult Reason/Comments: b/l pneumonia with hypoxia, failed outpatient Do you want consulting provider notified?: Yes Primary care physician: [facility] Course: 70-year-old male came in with the complains of shortness of breath and fatigue and some cough. Patient is found to have be wheezing admitted for COPD exacerbation. Patient had a computed tomography scan of the chest which showed significant emphysema with some infiltrate bilaterally. Patient does have history of small cell lung cancer and right lung lower lobe lobectomy. Patient was discharged yesterday from [facility] after he was treated for COPD and possible atypical pneumonia patient was on doxycycline. Patient does have some atypical infiltrates with some bilateral pleural effusions. BNP will be obtained echocardiogram is also being obtained pulmonology was consulted. Patient doesn't usually use oxygen at home presently on 2 L of oxygen. Patient denied desaturated to around 77%. Patient did not receive chemotherapy or radiation therapy. 02/01/2021 Patient has significant clinical improvement and wanted to go home. Will evaluated for home oxygen if he doesn't require any oxygen patient will be discharged today. Pulmonary evaluated the patient and believe patient may have a typical or atypical pneumonia patient was started on Rocephin was on azithromycin. Patient is being discharged on levofloxacin. PHYSICAL EXAMINATION: GENERAL: The patient is alert and oriented x3, not in any acute distress. Well developed, well nourished. HEENT: Pupils are round and equally reacting to light. EOMI. No scleral icterus. No conjunctival pallor. Normocephalic, atraumatic. No pharyngeal erythema. No thyromegaly. CARDIOVASCULAR: S1 and S2 present. No murmurs, rubs, or gallops. PULMONARY: There is significant improvement in his wheezing ABDOMEN: Soft, nontender, nondistended, normoactive bowel sounds. No palpable organomegaly. MUSCULOSKELETAL: No joint swelling or deformity. EXTREMITIES: No cyanosis, clubbing, or pedal edema. NEUROLOGICAL: Gross neurological examination did not reveal any focal deficits. SKIN: No rashes. Assessment and Plan Plan: -Shortness of breath: Secondary to COPD exacerbation that may be atypical pneumonia patient is clinically doing well was evaluated by pulmonary will be discharged on levofloxacin and main dose of steroids with close follow-up with Dr. hernández. Echocardiogram showed normal ejection fraction. Hypovolemic hyponatremia: Serum sodium from today is not available at this time -Hypertension -Hyperlipidemia -DVT prophylaxis Lovenox Patient Condition at Discharge: Fair Plan - Discharge Summary Discharge Rx Participant: Yes New Discharge Prescriptions: New Levofloxacin [Levaquin] 750 mg PO DAILY 7 Days #7 tab predniSONE 10 mg PO DAILY #30 tab Ipratropium-Albuterol Nebulize [Duoneb 0.5 mg-3 mg/3 ml Soln] 3 ml INHALATION QID 30 Days #6 box Continue Simvastatin [Zocor] 10 mg PO DAILY Aspirin [Adult Low Dose Aspirin EC] 81 mg PO DAILY Cyanocobalamin (Vitamin B-12) [Vitamin B-12] 1,000 mcg PO DAILY Cholecalciferol [Vitamin D3 (25 Mcg = 1000 Iu)] 50 mcg PO DAILY Ascorbic Acid [Vitamin C] 1,000 mg PO DAILY Mucinex Fast-Max Conges-Cough 1 tab PO Q6H PRN PRN Reason: Congestion Albuterol Inhaler [Ventolin Hfa Inhaler] 2 puff INHALATION RT-QID PRN PRN Reason: Shortness Of Breath Zinc 50 mg PO DAILY Discontinued Doxycycline Hyclate [Vibramycin] 100 mg PO BID Lisinopril [Zestril] 10 mg PO DAILY Discharge Medication List Aspirin [Adult Low Dose Aspirin EC] 81 mg PO DAILY 02/16/19 [History] Simvastatin [Zocor] 10 mg PO DAILY 02/16/19 [History] Albuterol Inhaler [Ventolin Hfa Inhaler] 2 puff INHALATION RT-QID PRN 01/30/21 [History] Ascorbic Acid [Vitamin C] 1,000 mg PO DAILY 01/30/21 [History] Cholecalciferol [Vitamin D3 (25 Mcg = 1000 Iu)] 50 mcg PO DAILY 01/30/21 [History] Cyanocobalamin (Vitamin B-12) [Vitamin B-12] 1,000 mcg PO DAILY 01/30/21 [History] Mucinex Fast-Max Conges-Cough 1 tab PO Q6H PRN 01/30/21 [History] Zinc 50 mg PO DAILY 01/30/21 [History] Ipratropium-Albuterol Nebulize [Duoneb 0.5 mg-3 mg/3 ml Soln] 3 ml INHALATION QID 30 Days #6 box 02/01/21 [Rx] Levofloxacin [Levaquin] 750 mg PO DAILY 7 Days #7 tab 02/01/21 [Rx] predniSONE 10 mg PO DAILY #30 tab 02/01/21 [Rx] Follow up Appointment(s)/Referral(s): Dimitrios Beltran MD [Primary Care Provider] - 3 Days Mar Lee MD [STAFF PHYSICIAN] - 1 Week Discharge Disposition: HOME SELF-CARE
[2021-02-01 13:21] LABS: African American GFR (CKD) 99.9 (60.0-200.0); Anion Gap 9.5 mmol/L (4.00-12.00); BUN/Creat Ratio 26.67 Ratio (12.00-20.00); Calcium 7.7 mg/dL (8.7-10.3); Carbon Dioxide 21.5 mmol/L (21.6-31.8); Non-African American GFR(CKD) 86.2 (60.0-200.0); Potassium 3.9 mmol/L (3.5-5.5)
--- NOTE | 2021-02-01 15:19 | P.PN ---
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 No mediastinal lymphadenopathy. The patient had a T1b, N0 M0 disease without any significant disease recurrence. He did have a follow-up CAT scan of the chest that was an done on 06/13/2020 and it showed postoperative changes and emphysema without any other acute abnormalities. The patient was doing well up to around a week ago he started having increased shortness of breath, fatigue and cough. Was found to have increased dyspnea and wheeze. He went to have a [facility] in [place] where he was seen in the emergency department and he was diagnosed having an atypical pneumonia and he was given doxycycline. Following discharge, the patient presented to our emergency department. He was hospitalized for bilateral erythematous admission that showed no this of any pulmonary embolism. It showed moderate to severe centrilobular emphysema and there was diffuse bilateral mild to moderate patchy opacities predominantly in the upper lobes and mild to moderate right and small left-sided pleural effusion. There was an 8 mm nodule in the right lower lobe area. The patient's has already been vaccinated for COVID-19. His COVID-19 by PCR came back negative on 2 separate occasions. His white cell count is at 6.9 with a hemoglobin of 13.7. His d-dimer was at 4.19, sodium was at 1:30, BUN is was 22 with a creatinine of 0.9, proBNP level was 460 with a troponin of less than 0.01. The rest of the vital screen including influenza A and influenza B and RSV and COVID-19 came back all negative. The patient was found to be hypoxic on 2 L about 2 by nasal cannula with a pulse ox of 92%. His breathing is nonlabored. He is afebrile with a temperature of 98.4. Preserved LV function with an ejection fraction of 55-60%. No other significant abnormalities noted. No signs of any fluid overload. On 02/01/2021 patient seen in follow-up on medical surgical floor. He is awake and alert, sitting up in bed, he is currently on room air, with a pulse ox of 9 2%, breathing comfortably, denies any fever or chills, no chest pain, no hemoptysis. This is coughing has improved, he remains on accommodation of azithromycin and Rocephin. His Legionella urine antigen came back negative, today's labs have been reviewed showing white blood cell count of 8.87, hem oglobin of 11.4, sodium is improving, and is up to 133, potassium 3.9, BUN of 24 creatinine 0.9. No acute events overnight. Is tolerating ambulation in the room, he is requesting to go home today. Vital signs have been stable, no fever or chills, no dyspnea, no cough. Patient will be discharged home today on oral antibiotics with outpatient follow-up Objective - Vital Signs Vital signs: Vital Signs Temp 97.7 F 02/01/21 07:51 Pulse 68 02/01/21 11:40 Resp 18 02/01/21 11:16 BP 116/67 02/01/21 07:51 Pulse Ox 92 L 02/01/21 11:16 Intake & Output 01/31/21 02/01/21 02/01/21 18:59 06:59 18:59 Intake Total 540 200 Balance 540 200 Intake: Oral 540 200 Other: Voiding Method Toilet Toilet # Voids 3 2 - Exam GENERAL EXAM: Alert, very pleasant, 70-y.o white male on room air, with pulse ox of 92%, comfortable in no apparent distress. HEAD: Normocephalic/atraumatic. EYES: Normal reaction of pupils, equal size. Conjunctiva pink, sclera white. NOSE: Clear with pink turbinates. THROAT: No erythema or exudates. NECK: No masses, no JVD, no thyroid enlargement, no adenopathy. CHEST: No chest wall deformity. Symmetrical expansion. LUNGS: Equal air entry with coarse crackles over left lower base, diminished breath sounds over right lower base CVS: Regular rate and rhythm, normal S1 and S2, no gallops, no murmurs, no rubs ABDOMEN: Soft, nontender. No hepatosplenomegaly, normal bowel sounds, no guarding or rigidity. EXTREMITIES: No clubbing, no edema, no cyanosis, 2+ pulses and upper and lower extremities. MUSCULOSKELETAL: Muscle strength and tone normal. SPINE: No scoliosis or deformity SKIN: No rashes CENTRAL NERVOUS SYSTEM: Alert and oriented -3. No focal deficits, tone is normal in all 4 extremities. PSYCHIATRIC: Alert and oriented -3. Appropriate affect. Intact judgment and insight. - Labs CBC & Chem 7: 02/01/21 05:38 02/01/21 05:38 Labs: Abnormal Lab Results - Last 24 Hours (Table) 01/31/21 02/01/21 02/01/21 Range/Units 09:55 05:38 05:38 RBC 3.70 L (4.40-5.60) X 10*6/uL Hgb 11.4 L (13.0-17.0) g/dL Hct 32.5 L (39.6-50.0) % Sodium 133 L (135-145) mmol/L Carbon Dioxide 21.5 L (21.6-31.8) mmol/L BUN/Creatinine Ratio 26.67 H (12.00-20.00) Ratio Glucose 136 H (70-110) mg/dL Calcium 7.7 L (8.7-10.3) mg/dL Procalcitonin 0.46 H (0.02-0.09) ng/mL Assessment and Plan Plan: 1 acute bilateral pulmonary infiltrates, likely secondary to pneumonia as the patient developed new bilateral pulmonary infiltrates compared to the last CAT scan of the chest that was done in May 2020. No significant leukocytosis. No fever. No signs of any decompensated heart failure. vaccinated for COVID- 19 and the repeat COVID-19 testing by PCR 2 was negative 2 acute COPD exacerbation secondary to above 3 acute hypoxic respiratory failure secondary to above 4 history of non-small cell lung cancer, stage IA, squamous cell type, post right lower lobe resection back in 2018 without evidence of any disease recurrence 5 history of COPD with a FEV1 of 71% of predicted. 6 hyperlipidemia 7 hypertension Plan: Today's labs have been reviewed Vital signs have been stable Legionella urine antigen was negative No leukocytosis no fever No chest pain, no hemoptysis No acute events overnight Patient can be discharged home today On 7 day course of Levaquin Prednisone taper DuoNeb breathing treatments 4 times a day, Follow up with Dr. Lee in the office in one week I performed a history & physical examination of the patient and discussed their management with my nurse practitioner, Lindsay Camacho. I reviewed the nurse pra ctitioner's note and agree with the documented findings and plan of care. Lung sounds are positive for coarse crackles. The findings and the impression was discussed with the patient. I attest to the documentation by the nurse practitioner. Time with Patient: Less than 30
== END 2021-02-01 15:14 | disposition home or self-care (01) | DRG 193 ==
LOC: EC 14:53 → 4SSUR 17:36
PROVIDERS: ADMIT Internal Medicine; ATTEND Internal Medicine
DX: J18.9 Pneumonia, unspecified organism (principal); J96.01 Acute respiratory failure with hypoxia; E87.1 Hypo-osmolality and hyponatremia; J90 Pleural effusion, not elsewhere classified; J43.2 Centrilobular emphysema; E78.5 Hyperlipidemia, unspecified; E86.1 Hypovolemia; Z20.822 Contact with and (suspected) exposure to COVID-19; Z87.891 Personal history of nicotine dependence; Z85.118 Personal history of other malignant neoplasm of bronchus and lung; Z90.2 Acquired absence of lung [part of]; I10 Essential (primary) hypertension; Z79.82 Long term (current) use of aspirin; Z79.899 Other long term (current) drug therapy; Z80.1 Family history of malignant neoplasm of trachea, bronchus and lung; Z80.42 Family history of malignant neoplasm of prostate; Z80.49 Family history of malignant neoplasm of other genital organs; Z80.0 Family history of malignant neoplasm of digestive organs; Z80.8 Family history of malignant neoplasm of other organs or systems
CPT/HCPCS: 36415; 71046; 71275; 80048; 80053; 83605; 83735; 83880; 84145; 84484; 85025; 85027; 85379; 85610; 85730; 87449; 87636; 93005; 93306; 94640; 96361; 96374; 99285

== ENCOUNTER 2022-02-17 21:23 | Observation (INO) | payer MEDICARE ==
[2022-02-17] MEDS ORDERED: IBUPROFEN 600 MG TAB PO STA (21:41)
[2022-02-17] MEDS ORDERED: ACETAMINOPHEN TAB 500 MG TAB PO STA (21:41)
[2022-02-17] MEDS ORDERED: ALBUTEROL HFA INHALER INHALATION STA (22:10)
[2022-02-17] MEDS ORDERED: SODIUM CHLORIDE 0.9% 1,000 ML IV STA (22:10)
[2022-02-17] MEDS ORDERED: KETOROLAC 15 MG/ML 1 ML VIAL IVP STA (22:10)
--- NOTE | 2022-02-17 22:10 | ED ---
Fever HPI - General Chief Complaint: Shortness of Breath Stated Complaint: SOB,Weakness Time Seen by Provider: 02/17/22 21:49 Source: patient, RN notes reviewed, old records reviewed Mode of arrival: ambulatory Limitations: no limitations - History of Present Illness Initial Comments: This is a 71-year-old male to the emergency department for evaluation patient presents today with fever shortness of breath cough congestion. Patient denies known specific covert exposure. Patient has persistent shortness of breath here in the ER although no chest pain. No recent hospitalizations. MD Complaint: fever, malaise, other (Shortness of breath) -: days(s) Temperature Source: subjective Context: sick contacts Associated Symptoms: chills, myalgias, sore throat, cough, shortness of breath Treatments Prior to Arrival: none - Related Data Home Medications Medication Instructions Recorded Confirmed Simvastatin [Zocor] 10 mg PO DAILY 02/16/19 02/18/22 lisinopriL 10 mg PO DAILY 02/18/22 02/18/22 Previous Rx's Medication Instructions Recorded Levofloxacin [Levaquin] 750 mg PO DAILY 7 Days #7 tab 02/18/22 methylPREDNISolone Dose Pack 4 mg PO DIRECTED #21 tab 02/18/22 [Medrol Dose Pack] Allergies Allergy/AdvReac Type Severity Reaction Status Date / Time No Known Allergies Allergy Verified 02/18/22 11:03 Review of Systems ROS Statement: Those systems with pertinent positive or pertinent negative responses have been documented in the HPI. ROS Other: All systems not noted in ROS Statement are negative. Past Medical History Past Medical History: Hyperlipidemia, Hypertension Additional Past Medical History / Comment(s): COPD, non-small cell lung cancer History of Any Multi-Drug Resistant Organisms: None Reported Additional Past Surgical History / Comment(s): left leg vein stripping, (L) lower lobe lung removal. Past Anesthesia/Blood Transfusion Reactions: No Reported Reaction Additional Past Anesthesia/Blood Transfusion Reaction / Comment(s): no hx blood transfusion Past Psychological History: No Psychological Hx Reported Smoking Status: Former smoker Past Alcohol Use History: Occasional Past Drug Use History: None Reported - Past Family History Mother Family Medical History: Cancer Additional Family Medical History / Comment(s): pancreas Father Family Medical History: Cancer Additional Family Medical History / Comment(s): lung, prostate, skin Sister(s) Family Medical History: Cancer Additional Family Medical History / Comment(s): uterine General Exam Limitations: no limitations General appearance: alert, in no apparent distress, anxious Head exam: Present: atraumatic, normocephalic, normal inspection Eye exam: Present: normal appearance, PERRL, EOMI. Absent: scleral icterus, conjunctival injection, periorbital swelling ENT exam: Present: normal exam, mucous membranes dry Neck exam: Present: normal inspection. Absent: tenderness, meningismus, lymphadenopathy Respiratory exam: Present: respiratory distress, wheezes, accessory muscle use, decreased breath sounds, prolonged expiratory. Absent: rales, rhonchi, stridor Cardiovascular Exam: Present: normal rhythm, tachycardia, normal heart sounds. Absent: systolic murmur, diastolic murmur, rubs, gallop, clicks GI/Abdominal exam: Present: soft, normal bowel sounds. Absent: distended, tenderness, guarding, rebound, rigid Extremities exam: Present: normal inspection, full ROM, normal capillary refill. Absent: tenderness, pedal edema, joint swelling, calf tenderness Back exam: Present: normal inspection Neurological exam: Present: alert, oriented X3, CN II-XII intact Psychiatric exam: Present: normal affect, normal mood Skin exam: Present: warm, dry, intact, normal color. Absent: rash Course Vital Signs 02/17/22 02/17/22 02/18/22 21:36 23:00 00:43 Temperature 102.4 F H Pulse Rate 125 H 65 84 Respiratory 28 H 24 22 Rate Blood Pressure 132/71 128/77 108/67 O2 Sat by Pulse 90 L 97 95 Oximetry 02/18/22 02/18/22 02/18/22 00:49 00:55 02:00 Temperature 98.8 F Pulse Rate 80 84 82 Respiratory 22 Rate Blood Pressure 110/74 O2 Sat by Pulse 99 Oximetry 02/18/22 02/18/22 02/18/22 03:41 04:00 06:00 Temperature 98.7 F Pulse Rate 64 68 67 Respiratory 20 20 24 Rate Blood Pressure 98/69 102/68 110/74 O2 Sat by Pulse 97 97 97 Oximetry - Reevaluation(s) Reevaluation #1: 02/17/22 Medical record is reviewed Patient symptoms are improved here in the ER Patient informed of results and questions answered Medical Decision Making - Medical Decision Making 71 male to the emergency department with shortness of breath COPD exacerbation mild hypoxia and pneumonia noted. Patient will for IV antibiotics breathing treatments and supportive. - Lab Data Result diagrams: 02/17/22 21:40 02/17/22 21:40 Lab Results 02/17/22 02/17/22 02/17/22 Range/Units 21:40 21:40 21:40 WBC 5.7 (3.8-10.6) k/uL RBC 4.31 (4.30-5.90) m/uL Hgb 13.7 (13.0-17.5) gm/dL Hct 39.3 (39.0-53.0) % MCV 91.1 (80.0-100.0) fL MCH 31.7 (25.0-35.0) pg MCHC 34.8 (31.0-37.0) g/dL RDW 13.6 (11.5-15.5) % Plt Count 202 (150-450) k/uL MPV 7.0 Neutrophils % 88 % Lymphocytes % 6 % Monocytes % 4 % Eosinophils % 1 % Basophils % 0 % Neutrophils # 5.0 (1.3-7.7) k/uL Lymphocytes # 0.4 L (1.0-4.8) k/uL Monocytes # 0.2 (0-1.0) k/uL Eosinophils # 0.0 (0-0.7) k/uL Basophils # 0.0 (0-0.2) k/uL PT 10.7 (9.0-12.0) sec INR 1.0 (<1.2) APTT 24.4 (22.0-30.0) sec Sodium 129 L (137-145) mmol/L Potassium 4.0 (3.5-5.1) mmol/L Chloride 100 (98-107) mmol/L Carbon Dioxide 20 L (22-30) mmol/L Anion Gap 9 mmol/L BUN 15 (9-20) mg/dL Creatinine 0.87 (0.66-1.25) mg/dL Est GFR (CKD-EPI)AfAm >90 (>60 ml/min/1.73 sqM) Est GFR (CKD-EPI)NonAf 87 (>60 ml/min/1.73 sqM) Glucose 155 H (74-99) mg/dL Plasma Lactic Acid Rob (0.7-2.0) mmol/L Calcium 8.8 (8.4-10.2) mg/dL Magnesium 1.7 (1.6-2.3) mg/dL Total Bilirubin 0.7 (0.2-1.3) mg/dL AST 33 (17-59) U/L ALT 17 (4-49) U/L Alkaline Phosphatase 67 (38-126) U/L Lactate Dehydrogenase 423 (313-618) U/L Troponin I (0.000-0.034) ng/mL C-Reactive Protein 8.5 H (<1.0) mg/dL NT-Pro-B Natriuret Pep pg/mL Total Protein 6.7 (6.3-8.2) g/dL Albumin 4.2 (3.5-5.0) g/dL Procalcitonin (0.02-0.09) ng/mL Urine Color Urine Appearance (Clear) Urine pH (5.0-8.0) Ur Specific Emmons (1.001-1.035) Urine Protein (Negative) Urine Glucose (UA) (Negative) Urine Ketones (Negative) Urine Blood (Negative) Urine Nitrite (Negative) Urine Bilirubin (Negative) Urine Urobilinogen (<2.0) mg/dL Ur Leukocyte Esterase (Negative) Urine RBC (0-5) /hpf Urine WBC (0-5) /hpf Urine Mucus (None) /hpf Influenza Type A (PCR) (Not Detectd) Influenza Type B (PCR) (Not Detectd) RSV (PCR) (Not Detectd) SARS-CoV-2 (PCR) (Not Detectd) 02/17/22 02/17/22 02/17/22 Range/Units 21:40 21:40 21:40 WBC (3.8-10.6) k/uL RBC (4.30-5.90) m/uL Hgb (13.0-17.5) gm/dL Hct (39.0-53.0) % MCV (80.0-100.0) fL MCH (25.0-35.0) pg MCHC (31.0-37.0) g/dL RDW (11.5-15.5) % Plt Count (150-450) k/uL MPV Neutrophils % % Lymphocytes % % Monocytes % % Eosinophils % % Basophils % % Neutrophils # (1.3-7.7) k/uL Lymphocytes # (1.0-4.8) k/uL Monocytes # (0-1.0) k/uL Eosinophils # (0-0.7) k/uL Basophils # (0-0.2) k/uL PT (9.0-12.0) sec INR (<1.2) APTT (22.0-30.0) sec Sodium (137-145) mmol/L Potassium (3.5-5.1) mmol/L Chloride (98-107) mmol/L Carbon Dioxide (22-30) mmol/L Anion Gap mmol/L BUN (9-20) mg/dL Creatinine (0.66-1.25) mg/dL Est GFR (CKD-EPI)AfAm (>60 ml/min/1.73 sqM) Est GFR (CKD-EPI)NonAf (>60 ml/min/1.73 sqM) Glucose (74-99) mg/dL Plasma Lactic Acid Rob 1.3 (0.7-2.0) mmol/L Calcium (8.4-10.2) mg/dL Magnesium (1.6-2.3) mg/dL Total Bilirubin (0.2-1.3) mg/dL AST (17-59) U/L ALT (4-49) U/L Alkaline Phosphatase (38-126) U/L Lactate Dehydrogenase (313-618) U/L Troponin I <0.012 (0.000-0.034) ng/mL C-Reactive Protein (<1.0) mg/dL NT-Pro-B Natriuret Pep pg/mL Total Protein (6.3-8.2) g/dL Albumin (3.5-5.0) g/dL Procalcitonin (0.02-0.09) ng/mL Urine Color Urine Appearance (Clear) Urine pH (5.0-8.0) Ur Specific Emmons (1.001-1.035) Urine Protein (Negative) Urine Glucose (UA) (Negative) Urine Ketones (Negative) Urine Blood (Negative) Urine Nitrite (Negative) Urine Bilirubin (Negative) Urine Urobilinogen (<2.0) mg/dL Ur Leukocyte Esterase (Negative) Urine RBC (0-5) /hpf Urine WBC (0-5) /hpf Urine Mucus (None) /hpf Influenza Type A (PCR) Not Detected (Not Detectd) Influenza Type B (PCR) Not Detected (Not Detectd) RSV (PCR) Not Detected (Not Detectd) SARS-CoV-2 (PCR) Not Detected (Not Detectd) 02/17/22 02/17/22 02/17/22 Range/Units 21:40 22:14 22:37 WBC (3.8-10.6) k/uL RBC (4.30-5.90) m/uL Hgb (13.0-17.5) gm/dL Hct (39.0-53.0) % MCV (80.0-100.0) fL MCH (25.0-35.0) pg MCHC (31.0-37.0) g/dL RDW (11.5-15.5) % Plt Count (150-450) k/uL MPV Neutrophils % % Lymphocytes % % Monocytes % % Eosinophils % % Basophils % % Neutrophils # (1.3-7.7) k/uL Lymphocytes # (1.0-4.8) k/uL Monocytes # (0-1.0) k/uL Eosinophils # (0-0.7) k/uL Basophils # (0-0.2) k/uL PT (9.0-12.0) sec INR (<1.2) APTT (22.0-30.0) sec Sodium (137-145) mmol/L Potassium (3.5-5.1) mmol/L Chloride (98-107) mmol/L Carbon Dioxide (22-30) mmol/L Anion Gap mmol/L BUN (9-20) mg/dL Creatinine (0.66-1.25) mg/dL Est GFR (CKD-EPI)AfAm (>60 ml/min/1.73 sqM) Est GFR (CKD-EPI)NonAf (>60 ml/min/1.73 sqM) Glucose (74-99) mg/dL Plasma Lactic Acid Rob (0.7-2.0) mmol/L Calcium (8.4-10.2) mg/dL Magnesium (1.6-2.3) mg/dL Total Bilirubin (0.2-1.3) mg/dL AST (17-59) U/L ALT (4-49) U/L Alkaline Phosphatase (38-126) U/L Lactate Dehydrogenase (313-618) U/L Troponin I (0.000-0.034) ng/mL C-Reactive Protein (<1.0) mg/dL NT-Pro-B Natriuret Pep 107 pg/mL Total Protein (6.3-8.2) g/dL Albumin (3.5-5.0) g/dL Procalcitonin 0.12 H (0.02-0.09) ng/mL Urine Color Yellow Urine Appearance Cloudy (Clear) Urine pH 5.5 (5.0-8.0) Ur Specific Emmons 1.024 (1.001-1.035) Urine Protein Trace H (Negative) Urine Glucose (UA) Negative (Negative) Urine Ketones 1+ H (Negative) Urine Blood Negative (Negative) Urine Nitrite Negative (Negative) Urine Bilirubin Negative (Negative) Urine Urobilinogen 3.0 (<2.0) mg/dL Ur Leukocyte Esterase Negative (Negative) Urine RBC 2 (0-5) /hpf Urine WBC 2 (0-5) /hpf Urine Mucus Many H (None) /hpf Influenza Type A (PCR) (Not Detectd) Influenza Type B (PCR) (Not Detectd) RSV (PCR) (Not Detectd) SARS-CoV-2 (PCR) (Not Detectd) - EKG Data -: EKG Interpreted by Me (EKG is sinus tachycardia 113 NH 154 QRS 94 QTC 369) - Radiology Data Radiology results: report reviewed (Chest x-rays negative for acute disease), image reviewed Disposition Clinical Impression: Pneumonia, Acute exacerbation of chronic obstructive pulmonary disease, Community acquired pneumonia Disposition: ADMITTED IP TO THIS HOSP Condition: Good Is patient prescribed a controlled substance at d/c from ED?: No
--- NOTE | 2022-02-17 22:24 | XR ---
EXAMINATION TYPE: XR chest 2V DATE OF EXAM: 02/17/2022 COMPARISON: 02/08/2021 HISTORY: Pneumonia. Short of breath TECHNIQUE: 2 views FINDINGS: There is pulmonary hyperinflation and flattening of the diaphragm. Heart size is normal. Th ere is a mild interstitial infiltrate left lower lobe. There are no hilar masses. Bony thorax is inta ct IMPRESSION: There is some mild left lower lobe interstitial pneumonia which is new compared to old ex am. No heart failure seen. COPD.
[2022-02-17] MEDS: SODIUM CHLORIDE 0.9% 1,000 ML IV SCH (22:28)
[2022-02-17 22:43] LABS: Partial Thromboplastin Time 24.4 sec (22.0-30.0); Prothrombin Time 10.7 sec (9.0-12.0)
[2022-02-17 22:49] LABS: Basophils % (A) 0 %; Eosinophils % (A) 1 %; HCT 39.3 % (39.0-53.0); HGB 13.7 gm/dL (13.0-17.5); Lymphocytes # (A) 0.4 k/uL (1.0-4.8); Lymphocytes % (A) 6 %; MCH 31.7 pg (25.0-35.0); MCHC 34.8 g/dL (31.0-37.0); MCV 91.1 fL (80.0-100.0); Monocytes # (A) 0.2 k/uL (0-1.0); Monocytes % (A) 4 %; Neutrophils % (A) 88 %; Platelet Count 202 k/uL (150-450); RBC 4.31 m/uL (4.30-5.90); RDW 13.6 % (11.5-15.5); WBC 5.7 k/uL (3.8-10.6)
[2022-02-17 22:50] LABS: ALT 17 U/L (4-49); AST 33 U/L (17-59); African American GFR (CKD) >90 (>60 ml/min/1.73 sqM); Albumin 4.2 g/dL (3.5-5.0); Alkaline Phosphatase 67 U/L (38-126); Anion Gap 9 mmol/L; Blood Urea Nitrogen 15 mg/dL (9-20); C Reactive Protein 8.5 mg/dL (<1.0); Calcium 8.8 mg/dL (8.4-10.2); Carbon Dioxide 20 mmol/L (22-30); Chloride 100 mmol/L (98-107); Glucose 155 mg/dL (74-99); LDH 423 U/L (313-618); Magnesium 1.7 mg/dL (1.6-2.3); Non-African American GFR(CKD) 87 (>60 ml/min/1.73 sqM); Sodium 129 mmol/L (137-145); Total Bilirubin 0.7 mg/dL (0.2-1.3); Total Protein 6.7 g/dL (6.3-8.2)
[2022-02-17 22:57] LABS: Appearance,Urine Cloudy (Clear); Bilirubin,Urine Negative (Negative); Blood,Urine Negative (Negative); Color,Urine Yellow; Glucose,Urine (UA) Negative (Negative); Ketones,Urine 1+ (Negative); Leukocyte Esterase,Urine Negative (Negative); Mucus,Urine Many /hpf; Nitrite,Urine Negative (Negative); PH, Urine 5.5 (5.0-8.0); Protein,Urine Trace (Negative); RBC,Urine 2 /hpf (0-5); Specific Gravity,Urine 1.024 (1.001-1.035); WBC,Urine 2 /hpf (0-5)
[2022-02-18] MEDS ORDERED: AZITHROMYCIN 500 MG in SODIUM CHLORIDE 0.9% 250 ML IVPB STA (00:17)
[2022-02-18] MEDS ORDERED: IPRATROPIUM-ALBUTEROL 3 ML NEB INHALATION STA (00:17)
[2022-02-18] MEDS ORDERED: DEXAMETHASONE SOD PHOSPHATE 10 MG/ML 1 ML VIAL IVP STA (00:17)
[2022-02-18] MEDS ORDERED: NALOXONE 0.4 MG/ML 1 ML VIAL IV PRN (01:04)
[2022-02-18] MEDS ORDERED: MORPHINE SULFATE 4 MG/ML SYRINGE IV PRN (01:04)
[2022-02-18] MEDS ORDERED: ACETAMINOPHEN TAB 325 MG TAB PO PRN (01:04)
[2022-02-18] MEDS ORDERED: IBUPROFEN 400 MG TAB PO PRN (01:04)
[2022-02-18] MEDS ORDERED: ONDANSETRON 4 MG/2 ML VIAL IVP PRN (01:04)
[2022-02-18] MEDS: IPRATROPIUM-ALBUTEROL 3 ML NEB INHALATION SCH ×3 (07:31→15:52)
[2022-02-18] MEDS: SODIUM CHLORIDE 0.9% 1,000 ML IV SCH ×2 (11:41→14:16)
--- NOTE | 2022-02-18 12:36 | P.CNPUL ---
History of Present Illness Consult date: 02/18/22 Requesting physician: Dillon Caba Reason for consult: dyspnea, pneumonia, abnormal CXR/CT Chief complaint: Shortness of breath, cough, congestion History of present illness: This is a very pleasant 71-year-old male patient who follows with Dr. Kim as his primary care provider. 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 Has has a history of previous bilateral pneumonia about 1 year ago. 3-4 days ago the patient developed increasing shortness of breath, cough and congestion. He states it came on rather quickly. He presented here to the emergency room yesterday for the same. He did have a fever of 102.4. His O2 saturations were in the low 90s. Chest x-ray did reveal mild left lower lobe interstitial pneumonia. White count 5.7. Hemoglobin 13.7. Sodium 129. Potassium 4.0. Chloride 100. Bicarb 20. BUN 15. Creatinine 0.87. Glucose 155. Troponin negative 1. ProBNP 107. Influenza screen negative. RSV screen negative. Sorto virus screen negative. He was initiated on ceftriaxone and azithromycin along with bronchodilators. He is seen today in consultation on the regular medical floor. He is currently sitting up in bed. Awake and alert in no acute distress. He is feeling quite a bit better today compared to yesterday. He is maintaining O2 saturations in the upper 90s on 3 L/m per nasal cannula. He's been afebrile. Review of Systems REVIEW OF SYSTEMS: CONSTITUTIONAL: Denies any recent significant weight loss or weight gain. EYES: Denies change in vision. EARS, NOSE, MOUTH, THROAT: Denies headaches, denies sore throat. CARDIOVASCULAR: Denies chest pain, palpitations or syncopal episodes. RESPIRATORY: Positive for shortness of breath, cough, congestion no hemoptysis. GASTROINTESTINAL: Denies change in appetite, denies abdominal pain GENITOURINARY: Denies hematuria, denies infections. MUSKULOSKELETAL: Denies pain, denies swelling. INTEGUMENTARY: Denies rash, denies eczema. NEUROLOGICAL: Denies recent memory loss, no recent seizure activity. PSYCHIATRIC: Denies anxiety, denies depression. HEMATOLOGIC/LYMPHATIC: Denies anemia, denies enlarged lymph nodes. Past Medical History Past Medical History: Hyperlipidemia, Hypertension Additional Past Medical History / Comment(s): COPD, non-small cell lung cancer History of Any Multi-Drug Resistant Organisms: None Reported Additional Past Surgical History / Comment(s): left leg vein stripping, (L) lower lobe lung removal. Past Anesthesia/Blood Transfusion Reactions: No Reported Reaction Additional Past Anesthesia/Blood Transfusion Reaction / Comment(s): no hx blood transfusion Past Psychological History: No Psychological Hx Reported Smoking Status: Former smoker Past Alcohol Use History: Occasional Past Drug Use History: None Reported - Past Family History Mother Family Medical History: Cancer Additional Family Medical History / Comment(s): pancreas Father Family Medical History: Cancer Additional Family Medical History / Comment(s): lung, prostate, skin Sister(s) Family Medical History: Cancer Additional Family Medical History / Comment(s): uterine Medications and Allergies Home Medications Medication Instructions Recorded Confirmed Type Simvastatin [Zocor] 10 mg PO DAILY 02/16/19 02/18/22 History lisinopriL 10 mg PO DAILY 02/18/22 02/18/22 History Allergies Allergy/AdvReac Type Severity Reaction Status Date / Time No Known Allergies Allergy Verified 02/18/22 11:03 Physical Exam Vitals: Vital Signs Temp Pulse Pulse Resp BP BP Pulse Ox 02/18/22 11:19 78 02/18/22 11:09 70 02/18/22 08:00 98.6 F 73 19 118/70 98 02/18/22 07:41 80 02/18/22 07:39 99 02/18/22 07:31 84 02/18/22 06:00 98.7 F 67 24 110/74 97 02/18/22 04:00 68 20 102/68 97 02/18/22 03:41 64 20 98/69 97 02/18/22 02:00 98.8 F 82 22 110/74 99 02/18/22 00:55 84 02/18/22 00:49 80 02/18/22 00:43 84 22 108/67 95 02/17/22 23:00 65 24 128/77 97 02/17/22 21:36 102.4 F H 125 H 28 H 132/71 90 L Intake and Output 02/17/22 02/18/22 02/18/22 22:59 06:59 14:59 Other: Voiding Method Urinal Weight 77.111 kg 77.111 kg GENERAL EXAM: Alert, very pleasant 71-year-old male patient, on 3 L nasal cannula, comfortable in no apparent distress. HEAD: Normocephalic. EYES: Normal reaction of pupils, equal size. NOSE: Clear with pink turbinates. THROAT: No erythema or exudates. NECK: No masses, no JVD. CHEST: No chest wall deformity. LUNGS: Equal air entry with crackles in the left lung base. CVS: S1 and S2 normal with no audible murmur, regular rhythm. ABDOMEN: No hepatosplenomegaly, normal bowel sounds, no guarding or rigidity. SPINE: No scoliosis or deformity SKIN: No rashes CENTRAL NERVOUS SYSTEM: No focal deficits, tone is normal in all 4 extremities. EXTREMITIES: There is no peripheral edema. No clubbing, no cyanosis. Peripheral pulses are intact. Results - Laboratory Findings CBC and BMP: 02/17/22 21:40 02/17/22 21:40 PT/INR, D-dimer PT 10.7 sec (9.0-12.0) 02/17/22 21:40 INR 1.0 (<1.2) 02/17/22 21:40 Abnormal lab findings: Abnormal Labs 02/17/22 02/17/22 02/17/22 21:40 21:40 22:37 Lymphocytes # 0.4 L Sodium 129 L Carbon Dioxide 20 L Glucose 155 H C-Reactive Protein 8.5 H Urine Protein Trace H Urine Ketones 1+ H Urine Mucus Many H - Diagnostic Findings Chest x-ray: image reviewed Assessment and Plan Assessment: 1 Acute community-acquired pneumonia of the left lung base 2 Febrile illness secondary to above 3 Mild hyponatremia 4 History of stage IA non-small cell lung cancer, squamous cell, previous right lower lobectomy in March 2019 5 Mild chronic obstructive pulmonary disease 6 Stable pulmonary nodules measuring 0.6 cm in the lingula and 0.8 cm in the right midlung. July 2021 7 Hypertension 8 hyperlipidemia Plan: The patient was seen and evaluated Chest x-ray, medications and labs reviewed Stable from the pulmonary standpoint The patient is requesting to go home He could be discharged on Levaquin 750 mg 7 days Complete a Medrol Dosepak Follow up in our office in 1 week I have personally seen and examined the patient, performed the documentation and the assessment and plan as written. Number of minutes spent on the visit: 20.
[2022-02-18] MEDS ORDERED: AZITHROMYCIN 500 MG in SODIUM CHLORIDE 0.9% 250 ML IVPB SCH (13:00)
[2022-02-18 14:06] VITALS: BP 104/62; RESP 18; TEMP 98
[2022-02-18 16:02] VITALS: PULSE 70
--- NOTE | 2022-03-06 13:24 | P.HPIM ---
History of Present Illness H&P Date: 02/18/22 Chief Complaint: Shortness of breath Patient is a 71-year-old male with a known history of non-small cell lung cancer status post left lower lobe surgery, COPD, hypertension, hyperlipidemia and previous history of smoking presents to ER with complaints of worsening shortness with/3 to 4 days. Patient was having cough and congestion and presented to ER with worsening symptoms. On admission patient was febrile with T-max 102.4, tachycardic and tachypneic and pulse ox 90% on room air. Patient was placed on 3 L oxygen via nasal cannula. Chest x-ray showed there is some mild left lower lobe interstitial pneumonia which is new compared to old exam. No heart failure. COPD. EKG showed sinus tachycardia. Laboratory data showed WBC 5.7 hemoglobin 13.7 and platelets 202 and lymphocyte 0.4 Sodium 129 potassium 4.0 chloride 100 bicarb is 20 BUN 15 and creatinine 0.87 an d blood sugar is 155 CRP 8.5 procalcitonin level is 0.12 and urinalysis negative. COVID-19 and infl uenza a and B and RSV PCR negative. Review of Systems Constitutional: Patient does have fever. No chills. . No generalized weakness or weight loss. Abdomen: Patient denied nausea vomiting and diarrhea and abdominal pain. Cardiovascular: Patient denies any chest pain or short of breath no palpitations. Respiratory: Patient does have cough and congestion and shortness of breath Neurologic: Patient denied any numbness or tingling headache. Musculoskeletal: Patient denies any complaints of joint swelling or deformity. Skin: Negative Psychiatric: Negative Endocrine: No heat or cold intolerance. No recent weight gain. Genitourinary: No dysuria or hematuria. All other 14 point ROS negative except the above Past Medical History Past Medical History: Hyperlipidemia, Hypertension Additional Past Medical History / Comment(s): COPD, non-small cell lung cancer History of Any Multi-Drug Resistant Organisms: None Reported Additional Past Surgical History / Comment(s): left leg vein stripping, (L) lower lobe lung removal. Past Anesthesia/Blood Transfusion Reactions: No Reported Reaction Additional Past Anesthesia/Blood Transfusion Reaction / Comment(s): no hx blood transfusion Past Psychological History: No Psychological Hx Reported Smoking Status: Former smoker Past Alcohol Use History: Occasional Past Drug Use History: None Reported - Past Family History Mother Family Medical History: Cancer Additional Family Medical History / Comment(s): pancreas Father Family Medical History: Cancer Additional Family Medical History / Comment(s): lung, prostate, skin Sister(s) Family Medical History: Cancer Additional Family Medical History / Comment(s): uterine Medications and Allergies Home Medications Medication Instructions Recorded Confirmed Type Simvastatin [Zocor] 10 mg PO DAILY 02/16/19 02/18/22 History Levofloxacin [Levaquin] 750 mg PO DAILY 7 Days #7 tab 02/18/22 Rx lisinopriL 10 mg PO DAILY 02/18/22 02/18/22 History methylPREDNISolone Dose Pack 4 mg PO DIRECTED #21 tab 02/18/22 Rx [Medrol Dose Pack] Allergies Allergy/AdvReac Type Severity Reaction Status Date / Time No Known Allergies Allergy Verified 02/18/22 11:03 Physical Exam Vitals: Vital Signs Temp Pulse Pulse Resp BP BP Pulse Ox 02/18/22 08:00 98.6 F 73 19 118/70 98 02/18/22 07:41 80 02/18/22 07:39 99 02/18/22 07:31 84 02/18/22 06:00 98.7 F 67 24 110/74 97 02/18/22 04:00 68 20 102/68 97 02/18/22 03:41 64 20 98/69 97 02/18/22 02:00 98.8 F 82 22 110/74 99 02/18/22 00:55 84 02/18/22 00:49 80 02/18/22 00:43 84 22 108/67 95 02/17/22 23:00 65 24 128/77 97 02/17/22 21:36 102.4 F H 125 H 28 H 132/71 90 L Intake and Output 02/17/22 02/18/22 02/18/22 22:59 06:59 14:59 Other: Weight 77.111 kg PHYSICAL EXAMINATION: Patient is lying in the bed comfortably, no acute distress, awake alert and oriented.. HEENT: Normocephalic. Neck is supple. Pupils reactive. Nostrils clear. Oral cavity is moist. Neck reveals no JVD, carotid bruits, or thyromegaly. CHEST EXAMINATION: Trachea is central. Symmetrical expansion. Left lower lobe minimal crackles. No wheezing.. CARDIAC: Normal S1, S2 with no gallops. No murmurs ABDOMEN: Soft. Bowel sounds normal. No organomegaly. No abdominal bruits. Extremities: reveal no edema. No clubbing or cyanosis Neurologically awake, alert, oriented x3 with well-coordinated movements. No focal deficits noted Skin: No rash or skin lesions. Psychiatric: Coperative. Nonsuicidal Musculoskeletal: No joint swelling or deformity. Normal range of motion. Results CBC & Chem 7: 02/17/22 21:40 02/17/22 21:40 Labs: Abnormal Lab Results - Last 24 Hours (Table) 02/17/22 02/17/22 02/17/22 Range/Units 21:40 21:40 22:37 Lymphocytes # 0.4 L (1.0-4.8) k/uL Sodium 129 L (137-145) mmol/L Carbon Dioxide 20 L (22-30) mmol/L Glucose 155 H (74-99) mg/dL C-Reactive Protein 8.5 H (<1.0) mg/dL Urine Protein Trace H (Negative) Urine Ketones 1+ H (Negative) Urine Mucus Many H (None) /hpf Thrombosis Risk Factor Assmnt - DVT/VTE Prophylaxis DVT/VTE Prophylaxis: Pharmacologic Prophylaxis ordered Assessment and Plan Assessment: Shortness of breath secondary to left lower lobe pneumonia likely community- acquired Sepsis secondary above Mild hypovolemic hyponatremia History of lung cancer status post lobectomy in March 2019 Lung nodule 0.6 cm in the lingula and 0.8 cm in the right midlung. On follow-up with pulmonary as an outpatient Hypertension next hyperlipidemia Previous history of smoking DVT prophylaxis Heparin subcu Plan: Patient behind on antibiotics in the form of ceftriaxone azithromycin. IV hydration and titrate down oxygen as tolerated. Pulmonary was consulted due to prior history of lung cancer and lung nodule. We will follow closely and continue GI and DVT prophylaxis. Time with Patient: Greater than 30
--- NOTE | 2022-03-06 13:25 | P.DS ---
Providers Date of admission: 02/18/22 01:05 Expected date of discharge: 02/18/22 Attending physician: Dillon Caba Consults: 02/18/22 10:18 Consult Physician Routine Consulting Provider: Jon Pena Consult Reason/Comments: pneumonia Do you want consulting provider notified?: Yes Primary care physician: [facility] Course: Discharge diagnosis Shortness of breath secondary to left lower lobe pneumonia likely community- acquired Sepsis secondary above Mild hypovolemic hyponatremia History of lung cancer status post lobectomy in March 2019 Lung nodule 0.6 cm in the lingula and 0.8 cm in the right midlung. On follow-up with pulmonary as an outpatient Hypertension next hyperlipidemia Previous history of smoking DVT prophylaxis Heparin subcu Hospital course Patient is a 71-year-old male with a known history of non-small cell lung cancer status post left lower lobe surgery, COPD, hypertension, hyperlipidemia and previous history of smoking presents to ER with complaints of worsening shortness with/3 to 4 days. Patient was having cough and congestion and presented to ER with worsening symptoms. On admission patient was febrile with T-max 102.4, tachycardic and tachypneic and pulse ox 90% on room air. Patient was placed on 3 L oxygen via nasal cannula. Chest x-ray showed there is some mild left lower lobe interstitial pneumonia which is new compared to old exam. No heart failure. COPD. EKG showed sinus tachycardia. Laboratory data showed WBC 5.7 hemoglobin 13.7 and platelets 202 and lymphocyte 0.4 Sodium 129 potassium 4.0 chloride 100 bicarb is 20 BUN 15 and creatinine 0.87 and blood sugar is 155 CRP 8.5 procalcitonin level is 0.12 and urinalysis negative. COVID-19 and influenza a and B and RSV PCR negative. Patient was antibiotics in the form of ceftriaxone azithromycin. IV hydration and titrate down oxygen as tolerated. Pulmonary was consulted due to prior history of lung cancer and lung nodule. Patient was seen by pulmonary and [facility] antibiotics the form of Levaquin for 7 days. Patient did improve clinically with above management and would like to be discharged home. Discharge physical examination was done and vitals reviewed. Patient Condition at Discharge: Good Plan - Discharge Summary Discharge Rx Participant: No New Discharge Prescriptions: New Levofloxacin [Levaquin] 750 mg PO DAILY 7 Days #7 tab methylPREDNISolone Dose Pack [Medrol Dose Pack] 4 mg PO DIRECTED #21 tab Continue Simvastatin [Zocor] 10 mg PO DAILY lisinopriL 10 mg PO DAILY Discharge Medication List Simvastatin [Zocor] 10 mg PO DAILY 02/16/19 [History] Levofloxacin [Levaquin] 750 mg PO DAILY 7 Days #7 tab 02/18/22 [Rx] lisinopriL 10 mg PO DAILY 02/18/22 [History] methylPREDNISolone Dose Pack [Medrol Dose Pack] 4 mg PO DIRECTED #21 tab 02/18/22 [Rx] Follow up Appointment(s)/Referral(s): Dimitrios Beltran MD [Primary Care Provider] - 1-2 days ([facility] Patient Instructions/Handouts: Pneumonia (DC) Discharge Disposition: HOME SELF-CARE
== END 2022-02-18 16:14 | disposition home or self-care (01) ==
LOC: EC 21:23 → INTOOBSV 02-18 01:05 → 4SSUR 02-18 01:05 → UNDODISIN 02-18 16:14
PROVIDERS: ADMIT Hospitalist; ATTEND Hospitalist
DX: J44.1 Chronic obstructive pulmonary disease with (acute) exacerbation (principal); J84.9 Interstitial pulmonary disease, unspecified; J44.0 Chronic obstructive pulmonary disease with (acute) lower respiratory infection; A41.9 Sepsis, unspecified organism; R09.02 Hypoxemia; E86.1 Hypovolemia; E87.1 Hypo-osmolality and hyponatremia; R91.1 Solitary pulmonary nodule; I10 Essential (primary) hypertension; E78.5 Hyperlipidemia, unspecified; Z85.118 Personal history of other malignant neoplasm of bronchus and lung; Z87.891 Personal history of nicotine dependence; Z90.2 Acquired absence of lung [part of]; Z79.899 Other long term (current) drug therapy; Z20.822 Contact with and (suspected) exposure to COVID-19; Z80.8 Family history of malignant neoplasm of other organs or systems; Z80.1 Family history of malignant neoplasm of trachea, bronchus and lung; Z80.42 Family history of malignant neoplasm of prostate; Z80.49 Family history of malignant neoplasm of other genital organs
CPT/HCPCS: 96361; 96365; 96367; 96375 ×2; 99285; 36415; 94640 ×3; 94760; 93005; 83880; 80053; 83605; 83615; 83735; 84484; 85025; 85610; 85730; 86140; 81001; 87040 ×2; 84145; 87636; 71046; G0378; J1100; J0456; J0696; J1885

== ENCOUNTER → 2022-07-27 | Outpatient (CLI) | payer MEDICARE ==
[2022-07-27 16:49] LABS: African American GFR (CKD) >90 (>60 ml/min/1.73 sqM); Blood Urea Nitrogen 16 mg/dL (9-20); Non-African American GFR(CKD) 86 (>60 ml/min/1.73 sqM)
--- NOTE | 2022-07-29 15:03 | CT ---
EXAMINATION TYPE: CT chest w con DATE OF EXAM: 07/27/2022 COMPARISON: 01/30/2021 HISTORY: LUNG CA CT DLP: 331.0 mGycm, Automated exposure control for dose reduction was used. CONTRAST: Performed injected with 100ML mL of Isovue 300. TECHNIQUE: Axial images were obtained at 5 mm thick sections. Reconstructed images are reviewed on Dotted Block computer in the coronal plane. FINDINGS: Portion of the thyroid visualized is normal. Emphysematous changes are present. Some minimal scarring appears to be at the medial right apex. Seri es 4 image 11. There is a 0.9 cm nodule superior segment right lower lobe. Series 4 image 43. This wa s present previously. No enlarged mediastinal or hilar adenopathy is evident. Scattered small lymph nodes are present. The ascending aorta diameter at the level of the main pulmonary artery is 3.6 cm. The main pulmonary ar mil diameter at the bifurcation is 2.[address] sections are obtained through the upper abdomen. Abdomen is essentially unremarkable. IMPRESSIONS: 1. Emphysematous changes. 2. Stable lung findings. Continued monitoring is recommended.
== END | disposition home or self-care (01) ==
LOC: RADCTMAIN 15:59
PROVIDERS: ATTEND Internal Medicine Critical Care Medicine
DX: J43.9 Emphysema, unspecified (principal)
CPT/HCPCS: 82565; 84520; 71260; 36415; Q9967

== ENCOUNTER 2022-09-18 10:17 | Day surgery (SDC) | payer MEDICARE ==
[2022-09-13 14:36] VITALS: BMI 25.7
[~2022-09-18 10:17] MED LIST changes: -HYDROmorphone 0.5 MG/0.5 ML SYRINGE IVP PRN; +LACTATED RINGERS 1,000 ML IV SCH; +LIDOCAINE 1% (10MG/ML) FOR IV START INTRADERMA PRN; -LIDOCAINE 1% 20 ML VIAL (10MG/ML) FOR IV START INTRADERMA PRN; -ceFAZolin IN SWFI 2 GM/20 ML SYRINGE IVP ONE
[2022-09-18 11:34] VITALS: RESP 16; TEMP 98.5
[2022-09-18] MEDS ORDERED: PROPOFOL 10 MG/ML 20 ML VIAL IV ONE (12:29)
--- NOTE | 2022-09-18 12:46 | P.PCN ---
Date of Procedure: 09/18/22 Procedure(s) Performed: BRIEF HISTORY: Patient is a 71-year-old pleasant white male scheduled for an and the and will and scheduled for an elective colonoscopy as a part of screening for colon cancer/positive cologuard. PROCEDURE PERFORMED: Colonoscopy with snare polypectomy. PREOPERATIVE DIAGNOSIS: Screening for colon cancer/positivecologuard. IV sedation per Anesthesia. PROCEDURE: After informed consent was obtained, the patient, was brought into the endoscopy unit. IV sedation was administered by Anesthesia under continuous monitoring. Digital rectal examination was normal. Initially the Olympus CF-160 flexible video colonoscope was then inserted in the rectum, gradually advanced into the cecum without any difficulty. Careful examination was performed as the scope was gradually being withdrawn. Ileocecal valve and the appendiceal orifice were visualized and appeared normal. Prep was excellent. Mucosa of the cecum, ascending colon, appeared normal. In the hepatic flexure there was a 1 cm flat polyp removed by snare polypectomy. The polyp could not be retrieved. Rest of the transverse colon, descending colon, sigmoid colon, and rectum appeared normal. Diffuse diverticulosis noted. Retroflexion was performed in the rectum and no lesions were seen. The patient tolerated the procedure well. IMPRESSION: 1 cm hepatic flexure polyp status post polypectomy Diffuse scattered diverticulosis RECOMMENDATIONS: Findings of this examination were discussed with the patient as well as his family. He was advised to follow with the biopsy results and have a repeat colonoscopy in 5 years..
[2022-09-18 13:20] VITALS: BP 122/76; PULSE 76
== END 2022-09-18 13:49 | disposition home or self-care (01) ==
LOC: ORWHC2ENDO 10:17
PROVIDERS: ATTEND Internal Medicine Gastroenterology
DX: D12.3 Benign neoplasm of transverse colon (principal); K57.30 Diverticulosis of large intestine without perforation or abscess without bleeding; E78.00 Pure hypercholesterolemia, unspecified; I10 Essential (primary) hypertension
CPT/HCPCS: 45385; J2704

== ENCOUNTER → 2023-07-11 | Outpatient (CLI) | payer MEDICARE ==
[2023-07-11 13:46] LABS: African American GFR (CKD) >90 (>60 ml/min/1.73 sqM); Blood Urea Nitrogen 12 mg/dL (9-20); Non-African American GFR(CKD) 86 (>60 ml/min/1.73 sqM)
--- NOTE | 2023-07-11 14:39 | CT ---
EXAMINATION TYPE: CT chest w con DATE OF EXAM: 07/11/2023 COMPARISON: 07/27/2010 HISTORY: f/u lung ca CT DLP: 310.9 mGycm Automated exposure control for dose reduction was used. TECHNIQUE: CT scan of the chest is performed with IV Contrast, patient injected with 100 mL of Isovue 300. MIP Images are created on CT scanner and reviewed. 3D reconstructed images are created on an independent workstation and reviewed. FINDINGS: LUNGS: Diffuse emphysematous changes. No evidence of focal pneumonia. There is a stable-appearing 8 m m nodule in the right middle lobe. Additional nodule in the right upper lobe near the fissure axial i mage 51 appears stable measuring 3 mm. Interlobular septal thickening along the periphery of the lung bases compatible with mild pulmonary f ibrosis and there is stable emphysematous changes. There is a 3 mm nodular density in the right lower lobe bronchus axial image 40 and 41 partially calc ified. Too small to characterize. 5 mm right apical density is too small characterize stable. MEDIASTINUM: There are no greater than 1 cm hilar or mediastinal lymph nodes. No pericardial effusi on is seen. Coronary artery calcification. OTHER: Hypertrophic and degenerative changes in spine. Bilateral shoulder arthropathy. Small hiatal hernia. IMPRESSION: 1. Diffuse emphysematous changes with stable pulmonary nodules unchanged from prior exam. 3 mm nodule in the right lower lobe bronchus stable
== END | disposition home or self-care (01) ==
LOC: RADCTMAIN 13:07
PROVIDERS: ATTEND Internal Medicine Critical Care Medicine
DX: C34.91 Malignant neoplasm of unspecified part of right bronchus or lung (principal); J43.9 Emphysema, unspecified; R91.8 Other nonspecific abnormal finding of lung field
CPT/HCPCS: 82565; 84520; 71260; 36415; Q9967

== ENCOUNTER → 2024-06-22 | Outpatient (CLI) | payer MEDICARE ==
[2024-06-22 15:09] LABS: African American GFR (CKD) >90 (>60 ml/min/1.73 sqM); Blood Urea Nitrogen 11 mg/dL (9-20); Non-African American GFR(CKD) 83 (>60 ml/min/1.73 sqM)
--- NOTE | 2024-06-22 18:36 | CT ---
EXAMINATION TYPE: CT chest w con CT DLP: 599 mGycm, Automated exposure control for dose reduction was used. DATE OF EXAM: 06/22/2024 4:32 PM COMPARISON: CT chest 07/11/2023, 07/27/2022, CTA chest 01/30/2021. 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 TECHNIQUE: Multiple axial images were obtained through the chest following the administration of 100 cc of Isovue 300. . Coronal and sagittal reformats reviewed. FINDINGS: LUNGS/ PLEURA: Diffuse centrilobular emphysematous changes redemonstrated. No focal consolidation. B ilateral lower lobe linear scarring and/or atelectasis. Stable right lower lobe 1.1 cm pulmonary nodu le from prior CT when measurement was somewhat technique (series 4, image 46). Previously seen nodule in the right upper lobe near the fissure appears stable. Similar 3 mm nodular density in the right l ower lobe bronchus region is partially calcified. Too small to characterize. Stable 5 mm right apical density which is too small to characterize. No new or enlarging pulmonary nodules. AIRWAY: Patent and unremarkable.. HEART: Size within normal limits. No pericardial effusion. MEDIASTINUM: No gross evidence of adenopathy. VASCULATURE: No aortic aneurysm. MUSCULOSKELETAL: No acute osseous abnormalities. Hypertrophic changes of the thoracic spine. SOFT TISSUES/LYMPH NODES: Unremarkable. LOWER NECK: No significant findings. UPPER ABDOMEN: No significant findings. IMPRESSION: 1. Diffuse emphysematous changes with stable pulmonary nodules dating back to at least 2020. No new o r enlarging pulmonary nodules. 2. Stable 3 mm nodule in the right lower lobe bronchus. [facility], , 06/22/2024 6:34 PM
== END | disposition home or self-care (01) ==
LOC: RADCTMAIN 14:26
PROVIDERS: ATTEND Internal Medicine Critical Care Medicine
DX: C34.90 Malignant neoplasm of unspecified part of unspecified bronchus or lung
CPT/HCPCS: 36415; 71260; 82565; 84520